=== PATIENT | male | born 1930 | race Caucasian/White ===

== ENCOUNTER 2016-03-22 16:19 | Inpatient (IN) | payer MEDICARE, BC ==
[2016-03-22 16:50] LABS: AUTOMATED EOSINOPHIL 1.3 % (0-5); AUTOMATED MONOCYTE 8.3 % (3-10); AUTOMATED NEUTROPHIL 80.4 % (45-76); MPV 9.9 fL (7.4-10.4)
[2016-03-22] MEDS ORDERED: Pharmacy Review for Metformin - IV Contrast Given SCH (17:00)
[2016-03-22 17:05] LABS: BLOOD UREA NITROGEN 24 MG/DL (9-20); CALC CORRECTED 10.2 MG/DL (8.4-10.2); CALCIUM 9.7 MG/DL (8.4-10.2); CALCULATED OSMOLALITY 270 MOs/Kg (270-290); CHLORIDE 97 mEq/L (98-107); CPK TOTAL WITH POSSIBLE MB 41 IU/L (55-170); GLUCOSE 101 MG/DL (70-99); PARTIAL THROMB. TIME 21.7 SEC (22-35); SODIUM LEVEL 138 mEq/L (137-146); TOTAL PROTEIN 6.8 G/DL (6.3-8.2)
--- NOTE | 2016-03-22 17:22 | DIRPT ---
CLINICAL DATA: Dyspnea, shortness of breath for couple weeks, recently treated for pneumonia, intermittent abdominal and chest pain, headache EXAM: PORTABLE CHEST 1 VIEW COMPARISON: Portable exam 1701 hours compared to 01/25/2016 FINDINGS: LEFT subclavian pacemaker leads project over RIGHT ventricle. Upper normal heart size. Atherosclerotic calcification aorta. Enlarged central pulmonary arteries question pulmonary arterial hypertension. Bibasilar atelectasis, unable to exclude LEFT lower lobe pneumonia. Remaining lungs clear. No pleural effusion or pneumothorax. IMPRESSION: Bibasilar atelectasis, unable to exclude LEFT lower lobe consolidation/pneumonia. Electronically Signed By: Tra Olviia M.D. On: 03/22/2016 17:19
--- NOTE | 2016-03-22 17:24 | EDPRACDOC ---
- General Information Chief Complaint: Dyspnea/Resp distress Stated Complaint: SHORTNESS OF BREATH Time Seen by Provider: 03/22/16 16:27 Information Source: Patient, Manager [facility] Mode Of Arrival: Ambulance Home Medications: Home Medications Metoprolol Succinate 50 mg PO DAILY 06/07/12 Aspirin [Aspirin EC] 81 mg PO DAILY 02/06/15 Finasteride [Proscar] 5 mg PO DAILY 02/06/15 Alprazolam 0.25 mg PO HS PRN 09/23/15 Budesonide/Formoterol Fumarate [Symbicort 80-4.5 Mcg Inhaler] 2 puff INH BID Torsemide 20 mg PO QAM 09/23/15 Tramadol HCl [Ultram] 100 mg PO TID 09/23/15 Polyethylene Glycol 3350 [Miralax] 17 gm PO QHS PRN #120 powd.pack 09/25/15 Ropinirole HCl [Requip] 1 mg PO HS 10/09/15 Sennosides [Senokot] 1 tab PO DAILY 10/09/15 Tiotropium [place] [Spiriva] 18 mcg INH DAILY 10/09/15 Albuterol Sulfate Nebs [Proventil, Ventolin] 3 ml NEB Q6 PRN 03/22/16 Mirtazapine 15 mg PO QHS 03/22/16 Allergies/Adverse Reactions: Allergies Allergy/AdvReac Type Severity Reaction Status Date / Time Penicillins Allergy Severe Confusion Verified 03/22/16 17:01 temazepam [From Restoril] Allergy Intermediate Confusion Verified 03/22/16 17:01 zolpidem tartrate Allergy Confusion Verified 03/22/16 17:01 [From Ambien] - History of Present Illness HPI: PT PRESENTS WITH DYSPNEA, WEAKNESS, LOWER BACK PAIN WITH LEG WEAKNESS, AND HEMATURIA. SYMPTOMS HAVE BEEN WORSENING OVER THE LAST FEW DAYS. Shortness of Breath: Moderate Relevant History: Reports: Heart Failure (CHF) Cough: Reports: Non-productive SOB Worsens with: Reports: Exertion, Coughing SOB Improves with: Reports: Rest Associated Signs and symptoms: Reports: Cough. Denies: Fever, Nasal Symptoms, Vomiting - Treatment Prior to ED Arrival Reported Medications/Treatment FIELD MARKETING MANAGER Treated With Medication FIELD MARKETING MANAGER YES Meds/Treatments Given O2 via Cannula,Neb Treatment(Albuterol) Medications FIELD MARKETING MANAGER (Medication/ x2 albuterol, duoneb, 125 mg solumedrol Dose/Time) EMS Treatment BLS,EKG IV Yes ED Past Medical History - History Reviewed Yes Nurses notes reviewed and agree except as marked - Patient Medical History Neurological History: Denies: Cerebrovascular Accident, Seizures, Dementia, Epilepsy, Guillian-Frank[place] Syndrome, Parkinson's, Multiple Sclerosis, Myasthenia Gravis Cardiac History: Reports: Coronary Artery Disease, Atrial Fibrillation, Hypertension, Congestive Heart Failure (HISTORY OF. No CHF on 05/2010 ECHO: Preserved EF, mild LVH.), Heart Attack, Cardiac Catheterization, Hypercholesterolemia, Pacemaker (X3). Denies: Cardiomyopathy, Valvular Heart Disease, Syncope Respiratory History: Reports: COPD (and chronc respiratory failure on 2L NC at home), Chronic Bronchitis. Denies: Asthma, Pneumonia, Emphysema, Pulmonary Embolism GI/ History: Reports: Renal Disease (history right kidney lesion 2010 - [facility] urologist), Kidney Stones, Gastroesophageal Reflux (and colonoscopy by Dr. Treviño). Denies: Renal Failure, Urinary Tract Infection Musculoskeletal History: Reports: Arthritis, Osteoarthritis. Denies: Gout, Rheumatoid Arthritis Psychological History: Reports: Depression. Denies: Anxiety, Schizophrenia, Bipolar Disorder, Substance Use Disorder Systemic History: Denies: Cancer, Anemia, Hypothyroidism Surgical History: Reports: Cardiac Catheterization, Hernia Surgery, Other ( Prostate surgery. Pacemaker x 3.). Denies: Tonsillectomy/Adnoidectomy - Family Medical History Reports: Cardiac Disorders (Father: at 55yo of [place].). Denies: Hypertension , Diabetes, Cancer, Stroke - Social Medical History Smoking Status: Former smoker Social History: Denies: Substance Use Disorder Lives In: Home EDM Review of Systems - Review of Systems ROS Negative Except as Marked: Yes All systems reviewed and were negative except as marked Constitutional: Fatigue, Weakness. negative: Fever Respiratory: Cough, Shortness of Breath Cardiovascular: negative: Chest Pain Gastrointestinal: negative: Diarrhea, Pain, Vomiting Genitourinary: Hematuria Musculoskeletal: Back (LOWER BACK PAIN WITH PAIN IN BILATERAL LEGS WITH ATTEMPTED STANDING.) - Physical Exam Constitutional: Alert Oriented to: Time, Person, Place Last recorded Vital Signs: Last Vital Signs Temp 98.3 F 03/22/16 16:32 Pulse 110 03/22/16 17:01 Resp 21 03/22/16 17:01 BP 148/70 03/22/16 17:01 Pulse Ox 90 L 03/22/16 17:01 Oxygen Pulse Oxygen Saturation 90 O2 Device Nasal Cannula Oxygen Flow Rate 3 Fraction of Inspired Oxygen ( FIO2) - HEENT Head: negative: Deformity, Laceration Eye Exam: negative: Conjunctival Injection, Pale Conjunctiva Oropharynx: negative: Membranes Dry Nose: negative: Congestion, Discharge Neck: negative: Limited ROM - Respiratory/Cardiovascular Respiratory: Diminished, Tachypnea Cardiovascular: Tachycardia, Irregular. negative: Bradycardia - GI Auscultation: Normal Palpation: Normal Tenderness: Non tender - Musculoskeletal Extremities: Pedal Pulse (PALPABLE), Radial Pulse (PALPABLE). negative: Calf Tenderness - Integumentary Skin: Warm, Dry - Neurologic Memory Impaired: Normal Motor Function: Normal Mood Description: Anxious Thought: Coherent Perception: Normal ED SOB MDM - Results Result Diagrams: 03/22/16 16:25 03/22/16 16:25 Results: WBC 9.5 xk/uL (3.8-10.8) 03/22/16 16:25 RBC 3.95 xM/uL (4.70-6.10) L 03/22/16 16:25 Hgb 12.6 g/dL (14.0-18.0) L 03/22/16 16:25 Hct 36.8 % (42-52) L 03/22/16 16:25 MCV 93 fL (80-94) 03/22/16 16:25 MCH 32.0 pg (27-32) 03/22/16 16:25 MCHC 34.3 g/dl (33-36) 03/22/16 16:25 RDW 14.4 % (11.5-14.5) 03/22/16 16:25 Plt Count 149 xk/uL (130-400) 03/22/16 16:25 MPV 9.9 fL (7.4-10.4) 03/22/16 16:25 Neut % (Auto) 80.4 % (45-76) H 03/22/16 16:25 Lymph % (Auto) 9.0 % (17-44) L 03/22/16 16:25 [place] % (Auto) 8.3 % (3-10) 03/22/16 16:25 Eos % (Auto) 1.3 % (0-5) 03/22/16 16:25 Baso % (Auto) 1.0 % (0-2) 03/22/16 16:25 Absolute Neuts (auto) 7.60 xk/uL (1.7-8.2) 03/22/16 16:25 Absolute Lymphs (auto) 0.86 xk/uL (0.65-4.75) 03/22/16 16:25 PT 10.7 SEC (9.2-11.2) 03/22/16 16:25 INR 1.0 03/22/16 16:25 APTT 21.7 SEC (22-35) L 03/22/16 16:25 Sodium 138 mEq/L (137-146) 03/22/16 16:25 Potassium 3.7 mEq/L (3.5-5.1) 03/22/16 16:25 Chloride 97 mEq/L (98-107) L 03/22/16 16:25 Carbon Dioxide 33 mMOL/L (22-33) 03/22/16 16:25 Anion Gap 12 mEq/L (8-16) 03/22/16 16:25 BUN 24 MG/DL (9-20) H 03/22/16 16:25 Creatinine 1.20 MG/DL (0.66-1.25) 03/22/16 16:25 Estimated GFR (MDRD) 58 mL/min (>=60) L 03/22/16 16:25 Glucose 101 MG/DL (70-99) H 03/22/16 16:25 Calculated Osmolality 270 MOs/Kg (270-290) 03/22/16 16:25 Lactic Acid 1.8 mEq/L (0.7-2.1) 03/22/16 16:25 Calcium 9.7 MG/DL (8.4-10.2) 03/22/16 16:25 Corrected Calcium 10.2 MG/DL (8.4-10.2) 03/22/16 16:25 Total Bilirubin 1.5 MG/DL (0.2-1.3) H 03/22/16 16:25 AST 21 IU/L (17-59) 03/22/16 16:25 ALT 35 IU/L (21-72) 03/22/16 16:25 Alkaline Phosphatase 97 IU/L (50-160) 03/22/16 16:25 Creatine Kinase 41 IU/L (55-170) L 03/22/16 16:25 Troponin I 0.07 ng/mL (<.04) 03/22/16 16:25 Total Protein 6.8 G/DL (6.3-8.2) 03/22/16 16:25 Albumin 3.5 G/DL (3.5-5.0) 03/22/16 16:25 Lipase 25 U/L (23-300) 03/22/16 16:25 Lab Results 03/22/16 03/22/16 03/22/16 16:25 16:25 16:25 WBC 9.5 RBC 3.95 L Hgb 12.6 L Hct 36.8 L MCV 93 MCH 32.0 MCHC 34.3 RDW 14.4 Plt Count 149 MPV 9.9 Neut % (Auto) 80.4 H Lymph % (Auto) 9.0 L [place] % (Auto) 8.3 Eos % (Auto) 1.3 Baso % (Auto) 1.0 Absolute Neuts (auto) 7.60 Absolute Lymphs (auto) 0.86 PT 10.7 INR 1.0 APTT 21.7 L Sodium Potassium Chloride Carbon Dioxide Anion Gap BUN Creatinine Estimated GFR (MDRD) Glucose Calculated Osmolality Lactic Acid 1.8 Calcium Corrected Calcium Total Bilirubin AST ALT Alkaline Phosphatase Creatine Kinase Troponin I Total Protein Albumin Lipase 03/22/16 16:25 WBC RBC Hgb Hct MCV MCH MCHC RDW Plt Count MPV Neut % (Auto) Lymph % (Auto) [place] % (Auto) Eos % (Auto) Baso % (Auto) Absolute Neuts (auto) Absolute Lymphs (auto) PT INR APTT Sodium 138 Potassium 3.7 Chloride 97 L Carbon Dioxide 33 Anion Gap 12 BUN 24 H Creatinine 1.20 Estimated GFR (MDRD) 58 L Glucose 101 H Calculated Osmolality 270 Lactic Acid Calcium 9.7 Corrected Calcium 10.2 Total Bilirubin 1.5 H AST 21 ALT 35 Alkaline Phosphatase 97 Creatine Kinase 41 L Troponin I 0.07 Total Protein 6.8 Albumin 3.5 Lipase 25 - EKG EKG #1 EKG Time: 16:29 -: Yes EKG interpreted by me Rate: bpm: 116 [place]: LAD Rhythm: Afib ST: Nonsp - Departure Yes I personally saw and evaluated the patient. Disposition: Admit IP To This Hospital Condition: Stable Final Diagnosis: Bacterial pneumonia, Acute respiratory failure with hypoxia COPD (chronic obstructive pulmonary disease) Qualifiers: COPD type: COPD with acute exacerbation Qualified Code(s): J44.1 - Chronic obstructive pulmonary disease with (acute) exacerbation Decision to Admit Time: 20:00 Decision to admit date: 03/22/16 Decision to admit: from ED
[2016-03-22 17:40] LABS: LEUKOCYTES/URINE NEG (NEGATIVE); NITRITE/URINE NEG (NEGATIVE); URINE OCCULT BLOOD NEG (NEG/TRACE)
[2016-03-22 17:44] LABS: RBC/URINE 0-2 (0-2)
[2016-03-22 17:50] LABS: ALLEN'S TEST PASS; TCO2 32.6 MMOL/L (23-27)
[2016-03-22 17:51] LABS: ABG Draw Site Right Radial
--- NOTE | 2016-03-22 18:34 | DIRPT ---
CLINICAL DATA: Abdominal pain and lower back pain. Gross hematuria. History of kidney stones. Short of breath for a few weeks. Recent pneumonia. EXAM: CT ABDOMEN AND PELVIS WITH CONTRAST TECHNIQUE: Multidetector CT imaging of the abdomen and pelvis was performed using the standard protocol following bolus administration of intravenous contrast. CONTRAST: 100 mL of Isovue 370 intravenous contrast COMPARISON: 09/27/2013 FINDINGS: Lung bases: There is a combination particular, linear and consolidated type opacities at the lung bases which may all be due to atelectasis. Pneumonia, particularly at the left lung base common should be considered in the proper clinical setting. Most of this is new from the prior CT. Heart is normal in size. At liver: Mild fatty infiltration. No mass or focal lesion. Spleen, gallbladder, pancreas: Unremarkable. Adrenal glands: 2 cm right adrenal mass similar to prior exam. Normal left adrenal gland. Kidneys, ureters, bladder: 3.4 cm right lower pole renal cyst. Mild areas of renal cortical thinning mostly along the anterior left mid to lower pole. No stones. No hydronephrosis. Ureters normal in course and in caliber. Bladder is unremarkable. Lymph nodes: No adenopathy. Ascites: None. Gastrointestinal: Left colon diverticula. No diverticulitis. Mild to moderate increased stool in the colon. No colonic wall thickening or inflammatory changes. Stomach and small bowel are unremarkable. Normal appendix visualized. Musculoskeletal: Degenerative changes throughout the visualized spine. Bones demineralized. No osteoblastic or osteolytic lesions. IMPRESSION: 1. Lung base opacities most likely due to atelectasis. Pneumonia as a component is possible. 2. No acute findings in the abdomen pelvis. 3. Mild to moderate increased stool in the colon. Multiple left colon diverticula without diverticulitis. 4. 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 Electronically Signed By: Erick Pa M.D. On: 03/22/2016 18:31
[2016-03-22] MEDS ORDERED: AZITHROMYCIN 500 MG in D5W 250 ML IV ONE (19:14)
[2016-03-22] MEDS ORDERED: CEFTRIAXONE 1 GM in D5W 100 ML IV ONE (19:14)
[2016-03-22] MEDS ORDERED: HYDROmorphone 1 MG INJECTION IV ONE (20:18)
[2016-03-22] MEDS ORDERED: Albuterol/Ipratropium Neb 3 ML NEB NEB PRN (20:42)
[2016-03-22] MEDS ORDERED: GLUCOSE (ORAL GEL) 15 GM TUBE PO PRN (20:42)
[2016-03-22] MEDS ORDERED: DEXTROSE 25 GM/50 ML PFS IV PRN (20:42)
[2016-03-22] MEDS ORDERED: GLUCAGON 1 MG VIAL SQ PRN (20:42)
[2016-03-22] MEDS ORDERED: Non-Formulary Medication ITEM (Budesonide/Formoterol Fumarate [Symbicort 80-4.5 Mcg Inha INH SCH (21:00)
--- NOTE | 2016-03-22 21:00 | HISTPHYS ---
- Chief Complaint sob, cough, - History of Present Illness 85 yowm presented to Ed for evaluation of worsening difficulties breathing. Patient reports about a week ago he has developed chest congestion cough productive foamy sputum. He reports that since that time he symptoms have worsened, he has developed chest tightness profound wheezing and cough productive thick yellowish greenish phlegm. Despite increasing his oxygen and using his nebulizers with increased frequency he did not sustain asymptomatic improvement. Early on today he has found himself gasping for air and decided to be evaluated emergency room. Upon arrival in ED patient was found hypoxic tachypneic and tachycardic. His PaO2 was only 52, chest x-ray maikel suspicion for left lower lobe pneumonia and medical consultation was phoned in for inpatient treatment. - Medical History Cardiac History: Reports: Coronary Artery Disease, Atrial Fibrillation, Hypertension, Congestive Heart Failure (HISTORY OF. No CHF on 05/2010 ECHO: Preserved EF, mild LVH.), Heart Attack, Cardiac Catheterization, Hypercholesterolemia, Pacemaker (X3), Valvular Heart Disease. Denies: Cardiomyopathy, Syncope Respiratory History: Reports: COPD (and chronc respiratory failure on 2L NC at home), Chronic Bronchitis, Pneumonia, Emphysema. Denies: Asthma, Pulmonary Embolism GI/ History: Reports: Renal Disease (history right kidney lesion 2010 - [facility] urologist), Kidney Stones, Gastroesophageal Reflux (and colonoscopy by Dr. Treviño), BPH. Denies: Renal Failure, Urinary Tract Infection Musculoskeletal History: Reports: Arthritis, Osteoarthritis. Denies: Gout, Rheumatoid Arthritis Systemic History: Denies: Cancer, Anemia, Hypothyroidism Neurological History: Denies: Cerebrovascular Accident, Seizures, Dementia, Epilepsy, Guillian-Cushing Syndrome, Parkinson's, Multiple Sclerosis, Myasthenia Gravis Psychological History: Reports: Depression, Anxiety (pacer). Denies: Schizophrenia, Bipolar Disorder, Substance Use Disorder - Surgical History Reports: Cardiac Catheterization, Hernia Surgery, Other (Prostate surgery. Pacemaker x 3.). Denies: Tonsillectomy/Adnoidectomy - Medictions/Allergies Allergies Penicillins Allergy (Severe, Verified 03/22/16 17:01) Confusion temazepam [From Restoril] Allergy (Intermediate, Verified 03/22/16 17:01) Confusion zolpidem tartrate [From Ambien] Allergy (Verified 03/22/16 17:01) Confusion FAMILY STATES AMBIEN IN PAST HAS CAUSED CONFUSION Current Medication List: Reviewed Home Medications Metoprolol Succinate 50 mg PO DAILY 06/07/12 Aspirin [Aspirin EC] 81 mg PO DAILY 02/06/15 Finasteride [Proscar] 5 mg PO DAILY 02/06/15 Alprazolam 0.25 mg PO HS PRN 09/23/15 Budesonide/Formoterol Fumarate [Symbicort 80-4.5 Mcg Inhaler] 2 puff INH BID Torsemide 20 mg PO QAM 09/23/15 Tramadol HCl [Ultram] 100 mg PO TID 09/23/15 Polyethylene Glycol 3350 [Miralax] 17 gm PO QHS PRN #120 powd.pack 09/25/15 Ropinirole HCl [Requip] 1 mg PO HS 10/09/15 Sennosides [Senokot] 1 tab PO DAILY 10/09/15 Tiotropium [place] [Spiriva] 18 mcg INH DAILY 10/09/15 Albuterol Sulfate Nebs [Proventil, Ventolin] 3 ml NEB Q6 PRN 03/22/16 Mirtazapine 15 mg PO QHS 03/22/16 - Family History Reports: Cardiac Disorders (Father: at 55yo of [place].). Denies: Hypertension , Diabetes, Cancer, Stroke - Social History Travel Outside of [place] in the Last 3 Months?: No Lives: With Family Smoking Status: Former smoker Social History: Denies: Substance Use Disorder - Review of Systems Constitutional: Fever, Diaphoresis, Fatigue, Loss of Appetite, Weakness, Weight loss Eyes: No Symptoms Reported Ears: No Symptoms Reported Nose: No Symptoms Reported Mouth: No Symptoms Reported Throat/Neck: No Symptoms Reported Respiratory: Cough, Shortness of Breath, Wheezing, Sputum, Dyspnea Cardiovascular: Palpitations Gastrointestinal: Nausea, Constipation, Heartburn Genitourinary: No Symptoms Reported, Nocturia Neurological: Numbness, Weakness Musculoskeletal:: Arthritis Integumentary: No Symptoms Reported Allergic/Immunologic: No Symptoms Reported Hematologic: No Symptoms Reported Endocrine: No Symptoms Reported Psychiatric: No Symptoms Reported - Physical Exam Vital Signs: Initial Vitals Temperature 98.3 F 03/22/16 16:32 Pulse Rate 111 03/22/16 16:32 Respiratory Rate 22 03/22/16 16:32 Blood Pressure 130/58 L 03/22/16 16:32 Pulse Oxygen Saturation 88 L 03/22/16 16:32 Constitutional: Alert, Distress, Restless Oriented to: Time, Person, Place - HEENT Head: Normal Eye: Normal Oropharynx: Normal ENT EAC: Normal TMJ: Normal Nose: No Symptoms Reported Respiratory: Accessory Muscle Use, Diminished, Rhonchi, Tachypnea, Wheezes Cardiovascular: Normal, Systolic murmur - GI Auscultation: Normal Palpation: Normal Tenderness: Non tender Rectal Exam: Deferred - Exam Deferred: Yes - Musculoskeletal Back: Normal Extremities: Clubbing, Cyanosis, Edema Spine: limited range of motion - Integumentary Skin: Normal, Warm, Dry Lymphatics: Normal - Neurologic Memory Impaired: Normal Motor Function: Abnormal Cranial Nerve: Normal Cerebellar: Ataxia Mood Description: Anxious Thought: Coherent Perception: Normal - Focused CV Perfusion Exam Vital Signs: Last Vital Signs Temp 98.3 F 03/22/16 16:32 Pulse 104 03/22/16 19:43 Resp 19 03/22/16 19:43 BP 103/56 L 03/22/16 19:43 Pulse Ox 94 03/22/16 19:43 - Diagnostic Findings Allergies Penicillins Allergy (Severe, Verified 03/22/16 17:01) Confusion temazepam [From Restoril] Allergy (Intermediate, Verified 03/22/16 17:01) Confusion zolpidem tartrate [From Ambien] Allergy (Verified 03/22/16 17:01) Confusion FAMILY STATES AMBIEN IN PAST HAS CAUSED CONFUSION Initial Vitals Temperature 98.3 F 03/22/16 16:32 Pulse Rate 111 03/22/16 16:32 Respiratory Rate 22 03/22/16 16:32 Blood Pressure 130/58 L 03/22/16 16:32 Pulse Oxygen Saturation 88 L 03/22/16 16:32 03/22/16 16:25 03/22/16 16:25 Abnormal Lab Results 03/22/16 03/22/16 03/22/16 16:25 16:25 16:25 RBC 3.95 L Hgb 12.6 L Hct 36.8 L Neut % (Auto) 80.4 H Lymph % (Auto) 9.0 L APTT 21.7 L pH pO2 HCO3 Total CO2 Base Excess Chloride 97 L BUN 24 H Estimated GFR (MDRD) 58 L Glucose 101 H Total Bilirubin 1.5 H Creatine Kinase 41 L Urine Protein Urine WBC Hyaline Casts 03/22/16 03/22/16 17:24 17:46 RBC Hgb Hct Neut % (Auto) Lymph % (Auto) APTT pH 7.480 H pO2 52.0 L HCO3 31.3 H Total CO2 32.6 H Base Excess 7.0 H Chloride BUN Estimated GFR (MDRD) Glucose Total Bilirubin Creatine Kinase Urine Protein 1+ H Urine WBC 2-5 H Hyaline Casts 5-10 H Last Vital Signs Temp 98.3 F 03/22/16 16:32 Pulse 104 03/22/16 19:43 Resp 19 03/22/16 19:43 BP 103/56 L 03/22/16 19:43 Pulse Ox 94 03/22/16 19:43 Patient Name: MIKE HIRSCH LOC: ED : 1930 AGE: 85 Order Date:03/22/16 Date of Service: Report # [id number] Ord Physician: Shiva Guerrero DO Exam # [id number] Emergency Physician: Shiva Guerrero DO Exam(s): [id number] RAD/DG CHEST PORTABLE CLINICAL DATA: Dyspnea, shortness of breath for couple weeks, recently treated for pneumonia, intermittent abdominal and chest pain, headache EXAM: PORTABLE CHEST 1 VIEW COMPARISON: Portable exam 1701 hours compared to 01/25/2016 FINDINGS: LEFT subclavian pacemaker leads project over RIGHT ventricle. Upper normal heart size. Atherosclerotic calcification aorta. Enlarged central pulmonary arteries question pulmonary arterial hypertension. Bibasilar atelectasis, unable to exclude LEFT lower lobe pneumonia. Remaining lungs clear. No pleural effusion or pneumothorax. IMPRESSION: Bibasilar atelectasis, unable to exclude LEFT lower lobe consolidation/pneumonia. Electronically Signed By: Tra Olivia M.D. On: 03/22/2016 17:19 Patient Name: MIKE HIRSCH LOC: ED : 1930 AGE: 85 Order Date:03/22/16 Date of Service: Report # [id number] Ord Physician: Shiva Guerrero DO Exam # [id number] Emergency Physician: Shiva Guerrero DO Exam(s): [id number] CT/CT ABD-PELV W/IV CM CLINICAL DATA: Abdominal pain and lower back pain. Gross hematuria. History of kidney stones. Short of breath for a few weeks. Recent pneumonia. EXAM: CT ABDOMEN AND PELVIS WITH CONTRAST TECHNIQUE: Multidetector CT imaging of the abdomen and pelvis was performed using the standard protocol following bolus administration of intravenous contrast. CONTRAST: 100 mL of Isovue 370 intravenous contrast COMPARISON: 09/27/2013 FINDINGS: Lung bases: There is a combination particular, linear and consolidated type opacities at the lung bases which may all be due to atelectasis. Pneumonia, particularly at the left lung base common should be considered in the proper clinical setting. Most of this is new from the prior CT. Heart is normal in size. At liver: Mild fatty infiltration. No mass or focal lesion. Spleen, gallbladder, pancreas: Unremarkable. Adrenal glands: 2 cm right adrenal mass similar to prior exam. Normal left adrenal gland. Kidneys, ureters, bladder: 3.4 cm right lower pole renal cyst. Mild areas of renal cortical thinning mostly along the anterior left mid to lower pole. No stones. No hydronephrosis. Ureters normal in course and in caliber. Bladder is unremarkable. Lymph nodes: No adenopathy. Ascites: None. Gastrointestinal: Left colon diverticula. No diverticulitis. Mild to moderate increased stool in the colon. No colonic wall thickening or inflammatory changes. Stomach and small bowel are unremarkable. Normal appendix visualized. Musculoskeletal: Degenerative changes throughout the visualized spine. Bones demineralized. No osteoblastic or osteolytic lesions. IMPRESSION: 1. Lung base opacities most likely due to atelectasis. Pneumonia as a component is possible. 2. No acute findings in the abdomen pelvis. 3. Mild to moderate increased stool in the colon. Multiple left colon diverticula without diverticulitis. 4. 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 EKG:afib no acute stt changes - Assessment (1) Acute respiratory failure with hypoxia J96.01 - ACUTE RESPIRATORY FAILURE WITH HYPOXIA Acute Present on Admission: Yes Patient will be admitted to monitor bed. Continue supplemental O2. Monitor pulmonary status. Repeat PA and lateral chest x-ray and ABG in the morning. May require BiPAP therapy.. (2) Bacterial pneumonia J15.9 - UNSPECIFIED BACTERIAL PNEUMONIA Acute Present on Admission: Yes Patient will receive IV antibiotics in the form of Rocephin and Zithromax. Will adjust antibiotics based on culture results. (3) COPD with acute exacerbation J44.1 - CHRONIC OBSTRUCTIVE PULMONARY DISEASE W (ACUTE) EXACERBATION Acute Present on Admission: Yes Patient will receive IV steroids and nebulized bronchodilators. 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 benzos (6) BPH (benign prostatic hyperplasia) N40.0 - BENIGN PROSTATIC HYPERPLASIA WITHOUT LOWER URINRY TRACT SYMP Chronic Present on Admission: Yes Qualifiers: Prostatic enlargement morphology: non-nodular Lower urinary tract symptom presence: symptoms absent Qualified Code(s): N40.0 - Benign prostatic hyperplasia without lower urinary tract symptoms Stable. Monitor urinary symptoms Case Care Discussed with: Patient, Family, Nursing Staff Total Time: 65 min . Critical Care: Yes Code: 291
[2016-03-22] MEDS: NS 1,000 ML IV SCH (22:49)
[2016-03-22] MEDS: PEG-ELECTROLYTE 17 GM PACK PO SCH (22:49)
[2016-03-22] MEDS: ROPINIROLE 1 MG TAB PO SCH (22:50)
[2016-03-22] MEDS: ENOXAPARIN 40 MG/0.4 ML PFS SQ SCH (22:50)
[2016-03-22] MEDS: MIRTAZAPINE 15 MG TAB PO SCH (22:50)
[2016-03-22] MEDS: METHYLPREDNISOLONE 125 MG/2 ML VIAL IV SCH (22:50)
[2016-03-22] MEDS: GUAIFENESIN 600 MG LA TAB PO SCH (22:50)
[2016-03-22] MEDS: ALPRAZOLAM 0.25 MG TAB PO PRN (22:54)
[2016-03-22] MEDS: TRAMADOL HCL 50 MG TAB PO SCH (23:01)
[2016-03-22] MEDS: REGULAR INSULIN 100 UNITS/ML - 3 ML VIAL SQ SCH (23:50)
[2016-03-23] MEDS: Albuterol/Ipratropium Neb 3 ML NEB NEB SCH ×4 (01:25→20:11)
[2016-03-23 04:47] LABS: ALLEN'S TEST PASS; BEb 7.3 (+/- 2); TCO2 35.2 MMOL/L (23-27)
[2016-03-23 04:52] LABS: ABG Draw Site Right Radial
[2016-03-23] MEDS: METHYLPREDNISOLONE 125 MG/2 ML VIAL IV SCH ×4 (05:00→21:45)
[2016-03-23] MEDS: TRAMADOL HCL 50 MG TAB PO SCH ×3 (05:19→20:27)
[2016-03-23] MEDS: PANTOPRAZOLE 40 MG TAB PO SCH (05:19)
[2016-03-23] MEDS: REGULAR INSULIN 100 UNITS/ML - 3 ML VIAL SQ SCH ×3 (05:58→18:44)
[2016-03-23] MEDS ORDERED: PANTOPRAZOLE 40 MG TAB PO SCH (06:00)
[2016-03-23 06:36] LABS: BLOOD UREA NITROGEN 21 MG/DL (9-20); CALCIUM 9.4 MG/DL (8.4-10.2); CALCULATED OSMOLALITY 273 MOs/Kg (270-290); CHLORIDE 98 mEq/L (98-107); GLUCOSE 129 MG/DL (70-99); SODIUM LEVEL 139 mEq/L (137-146)
[2016-03-23 07:31] LABS: SEG NEUTROPHIL 95 % (45-76)
--- NOTE | 2016-03-23 08:22 | DIRPT ---
CLINICAL DATA: Respiratory failure EXAM: CHEST 2 VIEW COMPARISON: 03/22/2016 FINDINGS: Left pacer remains in place, unchanged. Low lung volumes with bibasilar opacities, likely atelectasis. Heart is borderline enlarged with vascular congestion. No effusions. No acute bony abnormality. IMPRESSION: Low lung volumes, bibasilar atelectasis. Cardiomegaly, vascular congestion. Electronically Signed By: Davis Su M.D. On: 03/23/2016 08:19
[2016-03-23] MEDS: BUDESONIDE 0.5 MG NEB NEB SCH ×2 (08:26→20:13)
[2016-03-23] MEDS ORDERED: NITROGLYCERINE 0.4 MG TAB SL PRN (09:17)
[2016-03-23] MEDS ORDERED: NITROGLYCERINE 0.4 MG TAB SL ONE (09:19)
[2016-03-23] MEDS ORDERED: NS 500 ML IV SCH (09:35)
[2016-03-23] MEDS: METOPROLOL (TOPROL-XL) 50 MG TAB PO SCH (10:04)
[2016-03-23] MEDS: TORSEMIDE 20 MG TAB PO SCH (10:05)
[2016-03-23] MEDS: NS 1,000 ML IV SCH ×2 (10:12→23:08)
[2016-03-23] MEDS: FINASTERIDE 5 MG TAB PO SCH (10:13)
[2016-03-23] MEDS: SENNA CONCENTRATE TAB PO SCH (10:13)
[2016-03-23] MEDS: GUAIFENESIN 600 MG LA TAB PO SCH ×2 (10:13→20:25)
[2016-03-23] MEDS ORDERED: Vaccine Screening Complete SCH (11:00)
--- NOTE | 2016-03-23 15:23 | GENMEDPROG ---
Chief Complaint: Confused. Agitated and restless at times. Repeatedly states that he feels like he is dying. Still with moderate distress. Notes Reviewed: Yes Events from last night noted and discussed with Clinical Staff Current Medication List: Reviewed Currently: Reports: Cough, Wheezing, JIMENEZ, SOB. Denies: Nausea and Vomiting, Abdominal Pain - Physical Examination Vital Signs and I&O: Last Vital Signs Temp 97.6 F 03/23/16 10:32 Pulse 100 03/23/16 10:32 Resp 20 03/23/16 10:32 BP 112/65 03/23/16 10:32 Pulse Ox 93 03/23/16 10:32 Oxygen Pulse Oxygen Saturation 93 O2 Device Venturi Mask Oxygen Flow Rate 5 Fraction of Inspired Oxygen ( 50 FIO2) Intake & Output 03/20/16 03/21/16 03/22/16 03/23/16 23:59 23:59 23:59 23:59 Intake Total 530 591 Output Total 100 450 Balance 430 141 Patient's weight 79.469 kg 79.061 kg General: Alert, Severe distress. negative: Oriented x3, Well appearing (Rafiq ill-appearing) HEENT: Normal, PERRLA, EOMI Neck: Non-tender, Full range of motion Lymphatics: Normal Respiratory: Accessory Muscle Use, Diminished, Rhonchi, Tachypnea, Wheezes Cardiovascular: Regular rate and rhythm, No Gallops,Rubs/Murmurs GI: Normal bowel sounds, Soft, Non tender, No hepatospenomegaly, No masses Extremities/Musculoskeletal: Normal pulses, Swelling. negative: Tenderness Skin: Warm,Dry and Intact, No rashes Neurological: Normal Steady Gait, Normal speech, Strength at 5/5 X4 ext, Normal tone, Cranial nerves 3-12 NL Psych/Mental Status: Appropriate, Normal Affect, Cooperative Lab/DI/Studies Reviewed: Laboratory Results - last 24 hr 03/22/16 03/22/16 03/22/16 16:25 16:25 16:25 WBC 9.5 RBC 3.95 L Hgb 12.6 L Hct 36.8 L MCV 93 MCH 32.0 MCHC 34.3 RDW 14.4 Plt Count 149 MPV 9.9 Neut % (Auto) 80.4 H Lymph % (Auto) 9.0 L [place] % (Auto) 8.3 Eos % (Auto) 1.3 Baso % (Auto) 1.0 Absolute Neuts (auto) 7.60 Absolute Lymphs (auto) 0.86 Seg Neuts % (Manual) Band Neutrophils % Lymphocytes % (Manual) Monocytes % (Manual) Absolute Neutrophils Absolute Lymphocytes Platelet Estimate RBC Morphology PT INR APTT Puncture Site pH pCO2 pO2 HCO3 Total CO2 Base Excess FiO2 % Specimen Drawn By Sodium 138 Potassium 3.7 Chloride 97 L Carbon Dioxide 33 Anion Gap 12 BUN 24 H Creatinine 1.20 Estimated GFR (MDRD) 58 L Glucose 101 H POC Capillary Glucose Hemoglobin A1c Calculated Osmolality 270 Lactic Acid 1.8 Calcium 9.7 Corrected Calcium 10.2 Magnesium Total Bilirubin 1.5 H AST 21 ALT 35 Alkaline Phosphatase 97 Creatine Kinase 41 L Troponin I 0.07 Abv-A-Lcshltmhpan Pept Total Protein 6.8 Albumin 3.5 Lipase 25 Urine Color Urine Clarity Urine pH Ur Specific Erin Urine Protein Urine Glucose (UA) Urine Ketones Urine Occult Blood Urine Nitrite Urine Bilirubin Urine Urobilinogen Ur Leukocyte Esterase Urine RBC Urine WBC Ur Epithelial Cells Hyaline Casts Urine Mucus 03/22/16 03/22/16 03/22/16 16:25 16:25 16:25 WBC RBC Hgb Hct MCV MCH MCHC RDW Plt Count MPV Neut % (Auto) Lymph % (Auto) [place] % (Auto) Eos % (Auto) Baso % (Auto) Absolute Neuts (auto) Absolute Lymphs (auto) Seg Neuts % (Manual) Band Neutrophils % Lymphocytes % (Manual) Monocytes % (Manual) Absolute Neutrophils Absolute Lymphocytes Platelet Estimate RBC Morphology PT 10.7 INR 1.0 APTT 21.7 L Puncture Site pH pCO2 pO2 HCO3 Total CO2 Base Excess FiO2 % Specimen Drawn By Sodium Potassium Chloride Carbon Dioxide Anion Gap BUN Creatinine Estimated GFR (MDRD) Glucose POC Capillary Glucose Hemoglobin A1c 5.5 Calculated Osmolality Lactic Acid Calcium Corrected Calcium Magnesium Total Bilirubin AST ALT Alkaline Phosphatase Creatine Kinase Troponin I Omx-M-Sjiotaibari Pept 317 Total Protein Albumin Lipase Urine Color Urine Clarity Urine pH Ur Specific Erin Urine Protein Urine Glucose (UA) Urine Ketones Urine Occult Blood Urine Nitrite Urine Bilirubin Urine Urobilinogen Ur Leukocyte Esterase Urine RBC Urine WBC Ur Epithelial Cells Hyaline Casts Urine Mucus 03/22/16 03/22/16 03/22/16 17:24 17:46 19:34 WBC RBC Hgb Hct MCV MCH MCHC RDW Plt Count MPV Neut % (Auto) Lymph % (Auto) [place] % (Auto) Eos % (Auto) Baso % (Auto) Absolute Neuts (auto) Absolute Lymphs (auto) Seg Neuts % (Manual) Band Neutrophils % Lymphocytes % (Manual) Monocytes % (Manual) Absolute Neutrophils Absolute Lymphocytes Platelet Estimate RBC Morphology PT INR APTT Puncture Site Right radial pH 7.480 H pCO2 42.0 pO2 52.0 L HCO3 31.3 H Total CO2 32.6 H Base Excess 7.0 H FiO2 % 3 lpm nc Specimen Drawn By [place] Sodium Potassium Chloride Carbon Dioxide Anion Gap BUN Creatinine Estimated GFR (MDRD) Glucose POC Capillary Glucose Hemoglobin A1c Calculated Osmolality Lactic Acid Calcium Corrected Calcium Magnesium Total Bilirubin AST ALT Alkaline Phosphatase Creatine Kinase Troponin I 0.13 [id number]-Egrxnwrllvp Pept Total Protein Albumin Lipase Urine Color Yellow Urine Clarity Clear Urine pH 7.0 Ur Specific Erin 1.010 Urine Protein 1+ H Urine Glucose (UA) Neg Urine Ketones Neg Urine Occult Blood Neg Urine Nitrite Neg Urine Bilirubin Neg Urine Urobilinogen 0.2 Ur Leukocyte Esterase Neg Urine RBC 0-2 Urine WBC 2-5 H Ur Epithelial Cells Occ Hyaline Casts 5-10 H Urine Mucus Occ 03/22/16 03/23/16 03/23/16 23:48 04:40 04:55 WBC RBC Hgb Hct MCV MCH MCHC RDW Plt Count MPV Neut % (Auto) Lymph % (Auto) [place] % (Auto) Eos % (Auto) Baso % (Auto) Absolute Neuts (auto) Absolute Lymphs (auto) Seg Neuts % (Manual) Band Neutrophils % Lymphocytes % (Manual) Monocytes % (Manual) Absolute Neutrophils Absolute Lymphocytes Platelet Estimate RBC Morphology PT INR APTT Puncture Site Right radial pH 7.410 pCO2 53.0 H pO2 76.0 L HCO3 33.6 H Total CO2 35.2 H Base Excess 7.3 H FiO2 % 4l lnc Specimen Drawn By [employer] Sodium 139 Potassium 4.1 Chloride 98 Carbon Dioxide 35 H Anion Gap 10 BUN 21 H Creatinine 1.00 Estimated GFR (MDRD) > 60 Glucose 129 H POC Capillary Glucose 136 H Hemoglobin A1c Calculated Osmolality 273 Lactic Acid Calcium 9.4 Corrected Calcium Magnesium 2.20 Total Bilirubin AST ALT Alkaline Phosphatase Creatine Kinase Troponin I [id number]-Koigjkdwfwa Pept Total Protein Albumin Lipase Urine Color Urine Clarity Urine pH Ur Specific Erin Urine Protein Urine Glucose (UA) Urine Ketones Urine Occult Blood Urine Nitrite Urine Bilirubin Urine Urobilinogen Ur Leukocyte Esterase Urine RBC Urine WBC Ur Epithelial Cells Hyaline Casts Urine Mucus 03/23/16 03/23/16 04:55 05:44 WBC 6.9 RBC 3.61 L Hgb 11.6 L Hct 33.5 L MCV 93 MCH 32.1 H MCHC 34.6 RDW 14.4 Plt Count 149 MPV 10.0 Neut % (Auto) Cancelled Lymph % (Auto) Cancelled [place] % (Auto) Cancelled Eos % (Auto) Cancelled Baso % (Auto) Cancelled Absolute Neuts (auto) Cancelled Absolute Lymphs (auto) Cancelled Seg Neuts % (Manual) 95 H Band Neutrophils % 0 Lymphocytes % (Manual) 3 L Monocytes % (Manual) 0 Absolute Neutrophils 6.56 Absolute Lymphocytes 0.21 L Platelet Estimate Norm RBC Morphology Norm PT INR APTT Puncture Site pH pCO2 pO2 HCO3 Total CO2 Base Excess FiO2 % Specimen Drawn By Sodium Potassium Chloride Carbon Dioxide Anion Gap BUN Creatinine Estimated GFR (MDRD) Glucose POC Capillary Glucose 144 H Hemoglobin A1c Calculated Osmolality Lactic Acid Calcium Corrected Calcium Magnesium Total Bilirubin AST ALT Alkaline Phosphatase Creatine Kinase Troponin I [id number]-S-Redtxcxapbz Pept Total Protein Albumin Lipase Urine Color Urine Clarity Urine pH Ur Specific Erin Urine Protein Urine Glucose (UA) Urine Ketones Urine Occult Blood Urine Nitrite Urine Bilirubin Urine Urobilinogen Ur Leukocyte Esterase Urine RBC Urine WBC Ur Epithelial Cells Hyaline Casts Urine Mucus - Assessment (1) Acute respiratory failure with hypoxia Acute J96.01 - ACUTE RESPIRATORY FAILURE WITH HYPOXIA Comment/Plan: Remains acutely ill. Was having chest pain earlier and received does nitroglycerin. Unfortunately subsequently became hypotensive. Appears restless confused and agitated at times. Continue IV steroids, IV antibiotics, nebulizer treatments and aggressive pulmonary toilet. (2) Bacterial pneumonia Acute J15.9 - UNSPECIFIED BACTERIAL PNEUMONIA Comment/Plan: Continue IV antibiotics and pulmonary toilet. Remains acutely ill (3) COPD (chronic obstructive pulmonary disease) Acute J44.9 - CHRONIC OBSTRUCTIVE PULMONARY DISEASE, UNSPECIFIED Qualifiers: COPD type: COPD with acute exacerbation Chronic bronchitis type: C Emphysema type: E Qualified Code(s): J44.1 - Chronic obstructive pulmonary disease with (acute) exacerbation Comment/Plan: Severe. IV steroids, nebulizer treatments pulmonary toilet. Likely will need BiPAP use but is somewhat restless and agitated may not be able to tolerate (4) GERD (gastroesophageal reflux disease) Acute K21.9 - GASTRO-ESOPHAGEAL REFLUX DISEASE WITHOUT ESOPHAGITIS Qualifiers: Esophagitis presence: without esophagitis Qualified Code(s): K21.9 - Gastro -esophageal reflux disease without esophagitis Comment/Plan: Continue PPI (5) Adolescent depression Chronic F32.9 - MAJOR DEPRESSIVE DISORDER, SINGLE EPISODE, UNSPECIFIED Comment/Plan: Continue home meds and p.r.n. benzos (6) BPH (benign prostatic hyperplasia) Chronic N40.0 - BENIGN PROSTATIC HYPERPLASIA WITHOUT LOWER URINRY TRACT SYMP Qualifiers: Prostatic enlargement morphology: non-nodular Lower urinary tract symptom presence: symptoms absent Qualified Code(s): N40.0 - Benign prostatic hyperplasia without lower urinary tract symptoms Comment/Plan: Stable. Monitor urinary symptoms Case Care Discussed with: Patient, Nursing Staff, Physical Therapy, Resource Management, Respiratory Therapy, [place] Manager Total Time: 45 minutes Critical Care: Yes
--- NOTE | 2016-03-23 15:50 | CAPUEKG ---
[place], [place] Test Date: 2016-03-23 Pat Name: MIKE HIRSCH Department: Room: 440 Gender: Male Physics Technician: : Requested By: Order Number: Reading MD: Magdi Matos MD Measurements Intervals [place] Rate: 122 P: [place]: QRS: -32 QRSD: 104 T: 89 QT: 338 QTc: 481 Interpretive Statements Atrial fibrillation with rapid ventricular response Left axis deviation Abnormal ECG Electronically Signed On 03-23-16 15:50:21 EST by Magdi Matos MD <[email or web address]> [id number]
[2016-03-23] MEDS: CEFTRIAXONE 1 GM in D5W 100 ML IV SCH (18:45)
[2016-03-23] MEDS: ENOXAPARIN 40 MG/0.4 ML PFS SQ SCH (18:45)
[2016-03-23] MEDS: AZITHROMYCIN 500 MG in D5W 250 ML IV SCH (20:24)
[2016-03-23] MEDS: PEG-ELECTROLYTE 17 GM PACK PO SCH (20:25)
[2016-03-23] MEDS: ROPINIROLE 1 MG TAB PO SCH (20:26)
[2016-03-23] MEDS: MIRTAZAPINE 15 MG TAB PO SCH (20:26)
[2016-03-24] MEDS: REGULAR INSULIN 100 UNITS/ML - 3 ML VIAL SQ SCH ×6 (01:27→23:24)
[2016-03-24] MEDS: ALPRAZOLAM 0.25 MG TAB PO PRN ×2 (01:28→20:04)
[2016-03-24] MEDS: Albuterol/Ipratropium Neb 3 ML NEB NEB SCH ×4 (02:19→20:34)
[2016-03-24] MEDS: METHYLPREDNISOLONE 125 MG/2 ML VIAL IV SCH ×4 (03:58→22:51)
[2016-03-24] MEDS: PANTOPRAZOLE 40 MG TAB PO SCH (05:11)
[2016-03-24] MEDS: TRAMADOL HCL 50 MG TAB PO SCH ×3 (05:11→20:04)
[2016-03-24 05:23] LABS: ALLEN'S TEST PASS; BEb 5.6 (+/- 2)
[2016-03-24 05:26] LABS: ABG Draw Site Left Radial
[2016-03-24 06:16] LABS: SEG NEUTROPHIL 92 % (45-76)
[2016-03-24 06:19] LABS: TOTAL CELL COUNT 100
[2016-03-24 06:52] LABS: BLOOD UREA NITROGEN 25 MG/DL (9-20); CALCIUM 9.7 MG/DL (8.4-10.2); CALCULATED OSMOLALITY 275 MOs/Kg (270-290); CHLORIDE 101 mEq/L (98-107); GLUCOSE 142 MG/DL (70-99); SODIUM LEVEL 140 mEq/L (137-146)
[2016-03-24] MEDS: BUDESONIDE 0.5 MG NEB NEB SCH ×2 (08:23→20:34)
[2016-03-24] MEDS: GUAIFENESIN 600 MG LA TAB PO SCH ×2 (09:26→20:05)
[2016-03-24] MEDS: FINASTERIDE 5 MG TAB PO SCH (09:27)
[2016-03-24] MEDS: METOPROLOL (TOPROL-XL) 50 MG TAB PO SCH (09:27)
[2016-03-24] MEDS: TORSEMIDE 20 MG TAB PO SCH (09:27)
[2016-03-24] MEDS: SENNA CONCENTRATE TAB PO SCH (09:31)
[2016-03-24] MEDS ORDERED: METOPROLOL 5 MG/5 ML SDV IV ONE ×2 (10:01→10:04)
--- NOTE | 2016-03-24 13:19 | GENMEDPROG ---
Chief Complaint: A little better. Still congested and wheezing. Discussed with son at length who feels patient has declined significantly over the last couple years and likely will need to be placed in a facility. Notes Reviewed: Yes Events from last night noted and discussed with Clinical Staff Current Medication List: Reviewed Currently: Reports: Cough, Wheezing, JIMENEZ, SOB. Denies: Nausea and Vomiting, Abdominal Pain - Physical Examination Vital Signs and I&O: Last Vital Signs Temp 98.0 F 03/24/16 12:00 Pulse 88 03/24/16 12:00 Resp 20 03/24/16 12:00 BP 135/75 03/24/16 12:00 Pulse Ox 95 03/24/16 12:00 Oxygen Pulse Oxygen Saturation 95 O2 Device Nasal Cannula Oxygen Flow Rate 4 Fraction of Inspired Oxygen ( 50 FIO2) Intake & Output 03/21/16 03/22/16 03/23/16 03/24/16 23:59 23:59 23:59 23:59 Intake Total 530 1849 1110 Output Total 100 650 545 Balance 430 1199 565 Patient's weight 79.469 kg 79.061 kg 79.18 kg General: Alert, Moderate distress. negative: Oriented x3, Well appearing ( Rafiq ill-appearing) HEENT: Normal, PERRLA, EOMI, Anicteric Sclera Neck: Non-tender, Full range of motion Lymphatics: Normal Respiratory: Accessory Muscle Use, Diminished, Rhonchi, Wheezes Cardiovascular: Regular rate and rhythm, No Gallops,Rubs/Murmurs GI: Normal bowel sounds, Soft, Non tender, No hepatospenomegaly, No masses Extremities/Musculoskeletal: Normal pulses, Swelling. negative: Tenderness Skin: Warm,Dry and Intact, No rashes Neurological: Normal Steady Gait, Normal speech, Strength at 5/5 X4 ext, Normal tone, Cranial nerves 3-12 NL Psych/Mental Status: Appropriate, Normal Affect, Cooperative Lab/DI/Studies Reviewed: Laboratory Results - last 24 hr 03/23/16 03/23/16 03/24/16 10:53 15:21 00:38 WBC RBC Hgb Hct MCV MCH MCHC RDW Plt Count MPV Neut % (Auto) Lymph % (Auto) [place] % (Auto) Eos % (Auto) Baso % (Auto) Absolute Neuts (auto) Absolute Lymphs (auto) Seg Neuts % (Manual) Band Neutrophils % Lymphocytes % (Manual) Monocytes % (Manual) Absolute Neutrophils Absolute Lymphocytes Platelet Estimate RBC Morphology Puncture Site pH pCO2 pO2 HCO3 Total CO2 Base Excess FiO2 % Specimen Drawn By Sodium Potassium Chloride Carbon Dioxide Anion Gap BUN Creatinine Estimated GFR (MDRD) Glucose POC Capillary Glucose 182 H 140 H 178 H Calculated Osmolality Calcium 03/24/16 03/24/16 03/24/16 04:25 04:25 05:10 WBC 10.1 RBC 3.57 L Hgb 11.3 L Hct 32.7 L MCV 92 MCH 31.5 MCHC 34.4 RDW 14.6 H Plt Count 163 MPV 10.0 Neut % (Auto) Cancelled Lymph % (Auto) Cancelled [place] % (Auto) Cancelled Eos % (Auto) Cancelled Baso % (Auto) Cancelled Absolute Neuts (auto) Cancelled Absolute Lymphs (auto) Cancelled Seg Neuts % (Manual) 92 H Band Neutrophils % 1 Lymphocytes % (Manual) 4 L Monocytes % (Manual) 3 Absolute Neutrophils 9.39 H Absolute Lymphocytes 0.40 L Platelet Estimate Norm RBC Morphology 1+ poik Puncture Site Left radial pH 7.440 pCO2 45.0 pO2 71.0 L HCO3 30.6 H Total CO2 32.0 H Base Excess 5.6 H FiO2 % 4 lpm Specimen Drawn By Stana Sodium 140 Potassium 3.9 Chloride 101 Carbon Dioxide 29 Anion Gap 14 BUN 25 H Creatinine 1.00 Estimated GFR (MDRD) > 60 Glucose 142 H POC Capillary Glucose Calculated Osmolality 275 Calcium 9.7 03/24/16 03/24/16 05:50 12:03 WBC RBC Hgb Hct MCV MCH MCHC RDW Plt Count MPV Neut % (Auto) Lymph % (Auto) [place] % (Auto) Eos % (Auto) Baso % (Auto) Absolute Neuts (auto) Absolute Lymphs (auto) Seg Neuts % (Manual) Band Neutrophils % Lymphocytes % (Manual) Monocytes % (Manual) Absolute Neutrophils Absolute Lymphocytes Platelet Estimate RBC Morphology Puncture Site pH pCO2 pO2 HCO3 Total CO2 Base Excess FiO2 % Specimen Drawn By Sodium Potassium Chloride Carbon Dioxide Anion Gap BUN Creatinine Estimated GFR (MDRD) Glucose POC Capillary Glucose 155 H 154 H Calculated Osmolality Calcium - Assessment (1) Acute respiratory failure with hypoxia Acute J96.01 - ACUTE RESPIRATORY FAILURE WITH HYPOXIA Comment/Plan: Continues to be very short of breath though some improvement from yesterday. Still with wheezing and rhonchi and increased work of breathing. Continue IV antibiotics and pulmonary toilet. Appears more oriented today. Will likely need short-term rehab at discharge (2) Bacterial pneumonia Acute J15.9 - UNSPECIFIED BACTERIAL PNEUMONIA Comment/Plan: Continue IV antibiotics and pulmonary toilet. Remains acutely ill (3) COPD (chronic obstructive pulmonary disease) Acute J44.9 - CHRONIC OBSTRUCTIVE PULMONARY DISEASE, UNSPECIFIED Qualifiers: COPD type: COPD with acute exacerbation Chronic bronchitis type: C Emphysema type: E Qualified Code(s): J44.1 - Chronic obstructive pulmonary disease with (acute) exacerbation Comment/Plan: Slightly better today. Still with wheezing and increased work of breathing. Continue IV steroids, nebulizer treatments and pulmonary toilet. (4) GERD (gastroesophageal reflux disease) Acute K21.9 - GASTRO-ESOPHAGEAL REFLUX DISEASE WITHOUT ESOPHAGITIS Qualifiers: Esophagitis presence: without esophagitis Qualified Code(s): K21.9 - Gastro -esophageal reflux disease without esophagitis Comment/Plan: Continue PPI (5) Adolescent depression Chronic F32.9 - MAJOR DEPRESSIVE DISORDER, SINGLE EPISODE, UNSPECIFIED Comment/Plan: Continue home meds and p.r.n. benzos (6) BPH (benign prostatic hyperplasia) Chronic N40.0 - BENIGN PROSTATIC HYPERPLASIA WITHOUT LOWER URINRY TRACT SYMP Qualifiers: Prostatic enlargement morphology: non-nodular Lower urinary tract symptom presence: symptoms absent Qualified Code(s): N40.0 - Benign prostatic hyperplasia without lower urinary tract symptoms Comment/Plan: Stable. Monitor urinary symptoms Case Care Discussed with: Patient, Family, Nursing Staff, Physical Therapy, Resource Management, Respiratory Therapy, Relations Specialist
[2016-03-24] MEDS: CEFTRIAXONE 1 GM in D5W 100 ML IV SCH (18:14)
[2016-03-24] MEDS: ENOXAPARIN 40 MG/0.4 ML PFS SQ SCH (18:14)
[2016-03-24] MEDS: PEG-ELECTROLYTE 17 GM PACK PO SCH (20:04)
[2016-03-24] MEDS: AZITHROMYCIN 500 MG in D5W 250 ML IV SCH (20:04)
[2016-03-24] MEDS: MIRTAZAPINE 15 MG TAB PO SCH (20:05)
[2016-03-24] MEDS: ROPINIROLE 1 MG TAB PO SCH (20:06)
[2016-03-24] MEDS: NS 1,000 ML IV SCH (22:45)
[2016-03-24] MEDS: Levofloxacin 750 mg/150 ml D5W 750 MG/150 ML RTU IV SCH (23:22)
[2016-03-25] MEDS: Albuterol/Ipratropium Neb 3 ML NEB NEB SCH ×4 (02:37→20:10)
[2016-03-25] MEDS: METHYLPREDNISOLONE 125 MG/2 ML VIAL IV SCH ×4 (04:35→20:34)
[2016-03-25 05:07] LABS: ALLEN'S TEST PASS; BEb 6.4 (+/- 2); TCO2 33.4 MMOL/L (23-27)
[2016-03-25 05:08] LABS: ABG Draw Site Left Radial; ABG Draw Tech BKL
[2016-03-25] MEDS: REGULAR INSULIN 100 UNITS/ML - 3 ML VIAL SQ SCH ×3 (06:04→18:03)
[2016-03-25] MEDS: TRAMADOL HCL 50 MG TAB PO SCH ×3 (06:04→20:33)
[2016-03-25] MEDS: PANTOPRAZOLE 40 MG TAB PO SCH (06:04)
--- NOTE | 2016-03-25 06:10 | HIMCONS ---
DATE OF CONSULT: REQUESTING PHYSICIAN: Dr. Mancia. REASON FOR CONSULTATION: Respiratory failure. HISTORY OF PRESENT ILLNESS: The patient is an 85-year-old male, well known to me from previous office and hospital visits. Apparently, the patient has a history of baseline COPD and has not been feeling well for about a week prior to his admission with coughing up yellowish phlegm, tightness in chest, wheezing, and requiring more and more oxygen and eventually the patient ended up in the ER because of his severe hypoxia, tachypnea, and tachycardia and was found to have pneumonia, and therefore was admitted. He continues to wheeze and be short of breath. He is complaining of low back pain as well. PAST MEDICAL HISTORY: Significant for coronary artery disease, atrial fibrillation, hypertension, CHF, history of [place], cardiac catheterization, pacemaker placement, valvular heart disease, history of COPD, pneumonia, history of renal disease and kidney stones, gastroesophageal reflux disease, benign prostatic hyperplasia, arthritis, especially osteoarthritis, history of cancer, anemia, hypothyroidism, history of depression and anxiety. SURGICAL HISTORY: Significant for cardiac catheterization, hernia surgery, prostate surgery, pacemaker x3. MEDICATIONS: In the chart were noted. ALLERGIES: ALLERGIC TO PENICILLIN, TEMAZEPAM, AND AMBIEN. FAMILY HISTORY: Significant for father having cardiac disorder and [place]. SOCIAL HISTORY: The patient has been a former smoker. No history of alcohol or drug abuse. REVIEW OF SYSTEMS: Review of systems is negative except for as mentioned in the history of present illness except the patient did mention some low-grade fevers and fatigue, and denies any hemoptysis, hematemesis, hematochezia, nausea, vomiting, diarrhea, or constipation. PHYSICAL EXAMINATION: VITAL SIGNS: Temperature 97.8 degrees Fahrenheit, pulse 83, respiratory rate is 18, blood pressure 143/72, pulse ox 97% on 3 L nasal cannula. CHEST: Bilateral diffuse wheezing and bibasilar rales. HEART: S1, S2. Regular. No murmur. EXTREMITIES: No clubbing, cyanosis. The patient has 2+ bilateral ankle edema. ABDOMEN: Soft and nontender. Bowel sounds present. Hepatosplenomegaly is absent. NEURO: Grossly nonfocal. The patient moving all extremities. LABORATORY DATA: White count is 10.1, hemoglobin is 11.3, hematocrit 32.7, platelets are 163, blood gas showed a pH of 7.44, pCO2 was 45, PO2 of 71 on 40% oxygen. Sodium 140, potassium 3.9, chloride 101, CO2 is 29, BUN is 25, creatinine is 1.0, glucose is 142. IMAGING: Chest x-ray was done and was seen personally. The patient seems to have bibasilar atelectasis, cannot rule out left basal infiltrate. Cardiomegaly was noted. IMPRESSION: 1. Onldc-wu-acnsuxz respiratory failure. 2. Chronic obstructive pulmonary disease with exacerbation. 3. Left lower lobe pneumonia. 4. Multiple other medical issues. PLAN: The patient has been doing fairly well. Has been on Rocephin and Zithromax and is on Solu- Medrol 100 mg IV q.6 hours. He has gotten a history of significant wheezing and has right lower lobe rales. I would continue the current antibiotic therapy on this patient. We would also check him for MRSA, PCR. Repeat a chest x-ray, blood gas in the morning, and would get a sputum culture done. Urine culture is growing Pseudomonas aeruginosa, which is vieira sensitive, therefore given the patient's allergy profile, I would change the Zithromax to Levaquin and continue other supportive care. Thank you very much for the consultation, I will follow the patient with you. [id number] cc: Bobby Fowler MD
[2016-03-25] MEDS: TORSEMIDE 20 MG TAB PO SCH (07:23)
[2016-03-25] MEDS: GUAIFENESIN 600 MG LA TAB PO SCH ×2 (07:23→20:33)
[2016-03-25] MEDS: FINASTERIDE 5 MG TAB PO SCH (07:23)
[2016-03-25] MEDS: METOPROLOL (TOPROL-XL) 50 MG TAB PO SCH (07:24)
--- NOTE | 2016-03-25 08:37 | DIRPT ---
CLINICAL DATA: Respiratory failure. EXAM: PORTABLE CHEST 1 VIEW COMPARISON: March 23, 2016. FINDINGS: Hypoinflation of the lungs is noted. Stable cardiomediastinal silhouette. No pneumothorax or pleural effusion is noted. Minimal bibasilar subsegmental atelectasis is noted. There is noted a rounded nodular density seen in the right mid lung concerning for possible pulmonary nodule. Bony thorax is unremarkable. Left-sided pacemaker is unchanged in position. IMPRESSION: Hypoinflation of the lungs with minimal bibasilar subsegmental atelectasis. Rounded nodular density seen in right midlung concerning for possible pulmonary nodule; chest CT is recommended for further evaluation. Electronically Signed By: Dedrick Mancia Jr, M.D. On: 03/25/2016 08:34
--- NOTE | 2016-03-25 09:19 | PCM.PULM ---
Chief Complaint: Respiratory failure acute on chronic COPD exacerbation Pneumonia Pulmonary fibrosis Patient in chair alert and responsive, was confused overnight. Follows commands. Breathing is still short. On oxygen. Current complaints: SOB,JIMENEZ,cough,wheeze, sputum. No chest pain reported Current medication list reviewed:yes Notes reviewed:yes, Events from last night noted and discussed with Clinical Staff GI/DVT prophylaxis:yes - Physical Examination Vital Signs and I&O: Last Vital Signs Temp 97.8 F 03/25/16 08:08 Pulse 72 03/25/16 08:08 Resp 18 03/25/16 08:08 BP 146/72 03/25/16 08:00 Pulse Ox 93 03/25/16 08:08 Oxygen Pulse Oxygen Saturation 93 O2 Device Nasal Cannula Oxygen Flow Rate 3 Fraction of Inspired Oxygen ( 50 FIO2) Intake & Output 03/22/16 03/23/16 03/24/16 03/25/16 23:59 23:59 23:59 23:59 Intake Total 530 1849 2643 1282 Output Total 399 619 2960 780 Balance 430 1199 1048 502 Patient's weight 79.469 kg 79.061 kg 79.18 kg 78.982 kg General: Alert, Oriented x3, Cooperative, Mild distress, Obese, Weakness, Fatigue Respiratory: Diminished, Rhonchi, Wheezes Cardiovascular: Regular rate, Regular rate and rhythm, Normal S1, No Gallops, Rubs/Murmurs, Normal S2, Good Pedal Pulses GI: Normal bowel sounds, Soft, Non tender, No hepatospenomegaly, No masses Extremities/Musculoskeletal: Normal pulses Skin: Warm,Dry and Intact, No rashes, No breakdown, No significant lesion Neurological: Normal Steady Gait, Normal speech, Normal tone, Cranial nerves 3- 12 NL Psych/Mental Status: Cooperative, Anxious, Confused Result Diagrams: 03/24/16 04:25 03/24/16 04:25 Labs (last 24 hours): Laboratory Results - last 24 hr 03/24/16 03/24/16 03/24/16 12:03 16:28 23:22 Puncture Site pH pCO2 pO2 HCO3 Total CO2 Base Excess FiO2 % Specimen Drawn By POC Capillary Glucose 154 H 151 H 132 H 03/25/16 03/25/16 05:00 05:04 Puncture Site Left radial pH 7.430 pCO2 48.0 H pO2 67.0 L HCO3 31.9 H Total CO2 33.4 H Base Excess 6.4 H FiO2 % 3 lpm Specimen Drawn By Bkl POC Capillary Glucose 129 H Lab/DI/Studies Reviewed: EKG: NSR, NO ST or ST wave changes noted Chest x-ray: was seen personally patient seems to have peribronchial coughing and possible right mid zone infiltrate versus nodule Microbiology 03/24/16 22:53 Nares Nasal Screen MRSA (PCR)(GALDINO) - Final NEGATIVE for MRSA DNA 03/22/16 16:40 Sputum Gram Stain - Final 03/22/16 16:40 Sputum Sputum Culture - Final Moraxella catarrhalis Medications Enoxaparin Sodium (Lovenox) 40 mg SQ 1800 [facility] Stop: 04/05/16 21:59 Last Admin: 03/24/16 18:14 Dose: 40 mg Methylprednisolone Sodium Succinate (Solu-Medrol) 100 mg IV Q6H [facility] Stop: 04/05/16 21:59 Last Admin: 03/25/16 09:49 Dose: 100 mg Metoprolol Succinate (Toprol Xl) 50 mg PO DAILY [facility] Stop: 04/06/16 08:59 Last Admin: 03/25/16 07:24 Dose: 50 mg Mirtazapine (Remeron) 30 mg PO QHS [facility] Stop: 04/05/16 20:59 Last Admin: 03/24/16 20:05 Dose: 30 mg Nitroglycerin (Ntg (Nitrostat Sublingual Tab)) 0.4 mg SL Q5MIN PRN PRN Reason: Chest Pain or Discomfort Stop: 04/06/16 16:59 Last Admin: 03/23/16 09:20 Dose: 0.4 mg Pantoprazole Sodium (Protonix) 40 mg PO 0600 [facility] Stop: 04/05/16 16:59 Last Admin: 03/25/16 06:04 Dose: 40 mg Ropinirole HCl (Requip) 1 mg PO HS [facility] Stop: 04/05/16 20:59 Last Admin: 03/24/16 20:06 Dose: 1 mg Sodium Chloride (Normal Saline) 1,000 mls @ 50 mls/hr IV Q24H [facility] Stop: 04/05/16 16:59 Last Admin: 03/25/16 09:52 Dose: 50 mls/hr Albuterol/Ipratropium (Duoneb) 3 ml NEB Q2H PRN PRN Reason: Wheezing Stop: 04/05/16 16:59 Last Admin: 03/24/16 05:35 Dose: 3 ml Albuterol/Ipratropium (Duoneb) 3 ml NEB RTQ6 [facility] Stop: 04/05/16 16:59 Last Admin: 03/25/16 09:25 Dose: 3 ml Alprazolam (Xanax) 0.25 mg PO HS PRN PRN Reason: Sleep or Insomnia Stop: 04/05/16 20:54 Last Admin: 03/24/16 20:04 Dose: 0.25 mg Budesonide (Pulmicort) 0.5 mg NEB RTBID [facility] Stop: 04/06/16 07:59 Last Admin: 03/25/16 09:30 Dose: 0.5 mg Ceftriaxone Sodium 1 gm/ (Dextrose) 100 mls @ 200 mls/hr IV Q24H [facility] Stop: 03/30/16 18:59 Last Admin: 03/24/16 18:14 Dose: 200 mls/hr Finasteride (Proscar) 5 mg PO DAILY [facility] Stop: 04/06/16 08:59 Last Admin: 03/25/16 07:23 Dose: 5 mg Guaifenesin (Mucinex) 1,200 mg PO Q12 [facility] Stop: 04/05/16 21:59 Last Admin: 03/25/16 07:23 Dose: 1,200 mg Insulin Human Regular (Humulin R) 0 units SQ Q6 [facility] PRN Reason: Protocol Stop: 04/05/16 16:59 Last Admin: 03/25/16 06:04 Dose: Not Given Levofloxacin/Dextrose (Levaquin 750 Mg) 750 mg in 150 mls @ 100 mls/hr IV Q24H [facility] Stop: 03/31/16 21:59 Last Admin: 03/24/16 23:22 Dose: 100 mls/hr Torsemide (Demadex) 20 mg PO QAM [facility] Stop: 04/06/16 08:59 Last Admin: 03/25/16 07:23 Dose: 20 mg Tramadol HCl (Ultram) 100 mg PO TID [facility] Stop: 04/05/16 20:59 Last Admin: 03/25/16 06:04 Dose: 100 mg - Assessment/Plan (1) Acute respiratory failure with hypoxia Acute J96.01 - ACUTE RESPIRATORY FAILURE WITH HYPOXIA Comment/Plan: Patient has been about the same and would continue the current Solu-Medrol continue the current antibiotics oxygen and supportive care patient has been ambulating a little but becomes extremely weak after that and therefore would not change the treatment at this time continue DVT and GI prophylaxis prognosis is guarded because of his chest x-ray showing mild pulmonary vascular congestion I would start the patient on diuretics (2) Bacterial pneumonia Acute J15.9 - UNSPECIFIED BACTERIAL PNEUMONIA Comment/Plan: Chest x-ray shows an infiltrate in the right mid lung zone that could have been artifact however I would ordered a CT scan for this patient to evaluate that continue other supportive care along with antibiotics and oxygen (3) COPD (chronic obstructive pulmonary disease) Acute J44.9 - CHRONIC OBSTRUCTIVE PULMONARY DISEASE, UNSPECIFIED COPD with acute exacerbation C E J44.1 - Chronic obstructive pulmonary disease with (acute) exacerbation Comment/Plan: Continue steroids as mentioned above (4) GERD (gastroesophageal reflux disease) Acute K21.9 - GASTRO-ESOPHAGEAL REFLUX DISEASE WITHOUT ESOPHAGITIS without esophagitis K21.9 - Gastro-esophageal reflux disease without esophagitis Comment/Plan: No change in current treatment (5) Pulmonary fibrosis Chronic J84.10 - PULMONARY FIBROSIS, UNSPECIFIED Comment/Plan: Stable CT scan is pending I personally saw and evaluated the patient.: Yes Case Care Discussed with: Patient Education/Counseling Given To: Patient Education/Counseling Given Regarding: Diagnosis, Treatment, Prognosis, Follow Up , Disposition Plan
[2016-03-25] MEDS: BUDESONIDE 0.5 MG NEB NEB SCH ×2 (09:30→20:16)
[2016-03-25] MEDS: SENNA CONCENTRATE TAB PO SCH (09:49)
[2016-03-25] MEDS: NS 1,000 ML IV SCH (09:52)
--- NOTE | 2016-03-25 13:43 | GENMEDPROG ---
Chief Complaint: Slightly better today. Still some expiratory wheezing but overall improving. Less cough and congestion. Complains of some back pain Notes Reviewed: Yes Events from last night noted and discussed with Clinical Staff Current Medication List: Reviewed Currently: Reports: Cough, Wheezing, JIMENEZ, SOB. Denies: Nausea and Vomiting, Abdominal Pain - Physical Examination Vital Signs and I&O: Last Vital Signs Temp 97.8 F 03/25/16 12:00 Pulse 96 03/25/16 12:00 Resp 18 03/25/16 12:00 BP 157/77 03/25/16 12:00 Pulse Ox 94 03/25/16 12:00 Oxygen Pulse Oxygen Saturation 94 O2 Device Nasal Cannula Oxygen Flow Rate 3 Fraction of Inspired Oxygen ( 2 FIO2) Intake & Output 03/22/16 03/23/16 03/24/16 03/25/16 23:59 23:59 23:59 23:59 Intake Total 530 1849 2643 1282 Output Total 338 859 5686 1180 Balance 430 1199 1048 102 Patient's weight 79.469 kg 79.061 kg 79.18 kg 78.982 kg General: Alert, Moderate distress. negative: Oriented x3, Well appearing ( Rafiq ill-appearing) HEENT: Normal, PERRLA, EOMI, Anicteric Sclera Neck: Non-tender, Full range of motion Lymphatics: Normal Respiratory: Accessory Muscle Use, Diminished, Rhonchi, Wheezes Cardiovascular: Regular rate and rhythm, No Gallops,Rubs/Murmurs GI: Normal bowel sounds, Soft, Non tender, No hepatospenomegaly, No masses Extremities/Musculoskeletal: Normal pulses, Swelling. negative: Tenderness Skin: Warm,Dry and Intact, No rashes Neurological: Normal Steady Gait, Normal speech, Strength at 5/5 X4 ext, Normal tone, Cranial nerves 3-12 NL Psych/Mental Status: Appropriate, Normal Affect, Cooperative Lab/DI/Studies Reviewed: Laboratory Results - last 24 hr 03/24/16 03/24/16 03/25/16 16:28 23:22 05:00 Puncture Site Left radial pH 7.430 pCO2 48.0 H pO2 67.0 L HCO3 31.9 H Total CO2 33.4 H Base Excess 6.4 H FiO2 % 3 lpm Specimen Drawn By Bkl POC Capillary Glucose 151 H 132 H 03/25/16 03/25/16 05:04 11:01 Puncture Site pH pCO2 pO2 HCO3 Total CO2 Base Excess FiO2 % Specimen Drawn By POC Capillary Glucose 129 H 134 H - Assessment (1) Acute respiratory failure with hypoxia Acute J96.01 - ACUTE RESPIRATORY FAILURE WITH HYPOXIA Comment/Plan: Some better today. Less distress. Remains hypoxic and ill-appearing. Still with wheezing and rhonchi but work of breathing has improved. Continue IV antibiotics and pulmonary toilet. Sputum culture is growing out Moraxella. (2) Bacterial pneumonia Acute J15.9 - UNSPECIFIED BACTERIAL PNEUMONIA Comment/Plan: Sputum culture with Moraxella. Continue antibiotics and pulmonary toilet (3) COPD (chronic obstructive pulmonary disease) Acute J44.9 - CHRONIC OBSTRUCTIVE PULMONARY DISEASE, UNSPECIFIED Qualifiers: COPD type: COPD with acute exacerbation Chronic bronchitis type: C Emphysema type: E Qualified Code(s): J44.1 - Chronic obstructive pulmonary disease with (acute) exacerbation Comment/Plan: Slowly improving. Continue IV steroids and pulmonary toilet. Encourage incentive spirometry and activity. (4) GERD (gastroesophageal reflux disease) Acute K21.9 - GASTRO-ESOPHAGEAL REFLUX DISEASE WITHOUT ESOPHAGITIS Qualifiers: Esophagitis presence: without esophagitis Qualified Code(s): K21.9 - Gastro -esophageal reflux disease without esophagitis Comment/Plan: Continue PPI (5) Adolescent depression Chronic F32.9 - MAJOR DEPRESSIVE DISORDER, SINGLE EPISODE, UNSPECIFIED Comment/Plan: Continue home meds and p.r.n. benzos (6) BPH (benign prostatic hyperplasia) Chronic N40.0 - BENIGN PROSTATIC HYPERPLASIA WITHOUT LOWER URINRY TRACT SYMP Qualifiers: Prostatic enlargement morphology: non-nodular Lower urinary tract symptom presence: symptoms absent Qualified Code(s): N40.0 - Benign prostatic hyperplasia without lower urinary tract symptoms Comment/Plan: Stable. Monitor urinary symptoms Case Care Discussed with: Patient, Consultants, Nursing Staff, Physical Therapy , Resource Management, Respiratory Therapy, Acoustical Material Worker
[2016-03-25] MEDS ORDERED: TRAMADOL HCL 50 MG TAB PO ONE (15:28)
[2016-03-25] MEDS: FUROSEMIDE 20 MG/2 ML VIAL IV SCH ×2 (15:30→20:34)
[2016-03-25] MEDS: ENOXAPARIN 40 MG/0.4 ML PFS SQ SCH (18:04)
[2016-03-25] MEDS: CEFTRIAXONE 1 GM in D5W 100 ML IV SCH (18:04)
[2016-03-25] MEDS: ROPINIROLE 1 MG TAB PO SCH (20:34)
[2016-03-25] MEDS: MIRTAZAPINE 15 MG TAB PO SCH (20:34)
[2016-03-25] MEDS: PEG-ELECTROLYTE 17 GM PACK PO SCH (20:34)
[2016-03-25] MEDS: Levofloxacin 750 mg/150 ml D5W 750 MG/150 ML RTU IV SCH (23:42)
[2016-03-26] MEDS: REGULAR INSULIN 100 UNITS/ML - 3 ML VIAL SQ SCH ×4 (01:30→16:00)
[2016-03-26] MEDS: Albuterol/Ipratropium Neb 3 ML NEB NEB SCH ×4 (01:46→20:06)
[2016-03-26] MEDS: FUROSEMIDE 20 MG/2 ML VIAL IV SCH ×3 (05:40→22:16)
[2016-03-26] MEDS: TRAMADOL HCL 50 MG TAB PO SCH ×3 (05:40→22:16)
[2016-03-26] MEDS: PANTOPRAZOLE 40 MG TAB PO SCH (05:40)
[2016-03-26] MEDS: METHYLPREDNISOLONE 125 MG/2 ML VIAL IV SCH ×4 (05:41→22:16)
[2016-03-26] MEDS: METOPROLOL (TOPROL-XL) 50 MG TAB PO SCH (08:23)
[2016-03-26] MEDS: FINASTERIDE 5 MG TAB PO SCH (08:23)
[2016-03-26] MEDS: GUAIFENESIN 600 MG LA TAB PO SCH ×2 (08:23→22:14)
[2016-03-26] MEDS: SENNA CONCENTRATE TAB PO SCH (08:23)
[2016-03-26] MEDS: BUDESONIDE 0.5 MG NEB NEB SCH ×2 (08:47→20:09)
--- NOTE | 2016-03-26 09:50 | PCM.PULM ---
Chief Complaint: Patient sitting on chair alert and responsive follows commands patient in no acute distress and wheezing has improved. On nasal cannula oxygen Current complaints:Dyspnea, JIMENEZ,slight cough,wheeze. No chest pain reported Medication list and notes reviewed:yes, Events from last night noted and discussed with Clinical Staff - Physical Examination Vital Signs and I&O: Last Vital Signs Temp 97.5 F 03/26/16 08:12 Pulse 79 03/26/16 09:17 Resp 18 03/26/16 08:12 BP 132/65 03/26/16 08:12 Pulse Ox 93 03/26/16 08:12 Oxygen Pulse Oxygen Saturation 93 O2 Device Nasal Cannula Oxygen Flow Rate 3 Fraction of Inspired Oxygen ( 2 FIO2) Intake & Output 03/23/16 03/24/16 03/25/16 03/26/16 23:59 23:59 23:59 23:59 Intake Total 1849 2643 2300 772 Output Total 650 1595 2930 950 Balance 1199 1048 -630 -178 Patient's weight 79.061 kg 79.18 kg 78.982 kg 78.471 kg General: Alert, Oriented x3, Cooperative, Mild distress, Fatigue (improved) Respiratory: Diminished (at bases), Rhonchi, Wheezes (improving) Cardiovascular: Regular rate, Regular rate and rhythm, Normal S1, No Gallops, Rubs/Murmurs, Normal S2 GI: Normal bowel sounds, Soft, Non tender, No hepatospenomegaly, No masses, Obese Extremities/Musculoskeletal: Normal pulses, Edema (BLEs 1+ edema noted) Skin: Warm,Dry and Intact, No rashes, No breakdown, No significant lesion Neurological: Normal Steady Gait, Normal speech, Normal tone, Cranial nerves 3- 12 NL Psych/Mental Status: Appropriate, Disoriented (a little overnight) Result Diagrams: 03/24/16 04:25 03/24/16 04:25 Labs (last 24 hours): Laboratory Results - last 24 hr 03/25/16 03/25/16 03/26/16 11:01 16:58 00:03 POC Capillary Glucose 134 H 126 H 159 H 03/26/16 05:21 POC Capillary Glucose 163 H Lab/DI/Studies Reviewed: EKG: NSR, NO ST or ST wave changes noted CT CHEST WITHOUT CONTRAST: CT scan of the chest was seen personally patient seems to have bibasilar scarring with no other abnormality Medications Enoxaparin Sodium (Lovenox) 40 mg SQ 1800 [facility] Stop: 04/05/16 21:59 Last Admin: 03/24/16 18:14 Dose: 40 mg Methylprednisolone Sodium Succinate (Solu-Medrol) 100 mg IV Q6H [facility] Stop: 04/05/16 21:59 Last Admin: 03/25/16 09:49 Dose: 100 mg Metoprolol Succinate (Toprol Xl) 50 mg PO DAILY [facility] Stop: 04/06/16 08:59 Last Admin: 03/25/16 07:24 Dose: 50 mg Mirtazapine (Remeron) 30 mg PO QHS [facility] Stop: 04/05/16 20:59 Last Admin: 03/24/16 20:05 Dose: 30 mg Nitroglycerin (Ntg (Nitrostat Sublingual Tab)) 0.4 mg SL Q5MIN PRN PRN Reason: Chest Pain or Discomfort Stop: 04/06/16 16:59 Last Admin: 03/23/16 09:20 Dose: 0.4 mg Pantoprazole Sodium (Protonix) 40 mg PO 0600 [facility] Stop: 04/05/16 16:59 Last Admin: 03/25/16 06:04 Dose: 40 mg Ropinirole HCl (Requip) 1 mg PO HS [facility] Stop: 04/05/16 20:59 Last Admin: 03/24/16 20:06 Dose: 1 mg Albuterol/Ipratropium (Duoneb) 3 ml NEB Q2H PRN PRN Reason: Wheezing Stop: 04/05/16 16:59 Last Admin: 03/24/16 05:35 Dose: 3 ml Albuterol/Ipratropium (Duoneb) 3 ml NEB RTQ6 [facility] Stop: 04/05/16 16:59 Last Admin: 03/25/16 09:25 Dose: 3 ml Alprazolam (Xanax) 0.25 mg PO HS PRN PRN Reason: Sleep or Insomnia Stop: 04/05/16 20:54 Last Admin: 03/24/16 20:04 Dose: 0.25 mg Budesonide (Pulmicort) 0.5 mg NEB RTBID [facility] Stop: 04/06/16 07:59 Last Admin: 03/25/16 09:30 Dose: 0.5 mg Ceftriaxone Sodium 1 gm/ (Dextrose) 100 mls @ 200 mls/hr IV Q24H [facility] Stop: 03/30/16 18:59 Last Admin: 03/24/16 18:14 Dose: 200 mls/hr Finasteride (Proscar) 5 mg PO DAILY [facility] Stop: 04/06/16 08:59 Last Admin: 03/25/16 07:23 Dose: 5 mg Guaifenesin (Mucinex) 1,200 mg PO Q12 [facility] Stop: 04/05/16 21:59 Last Admin: 03/25/16 07:23 Dose: 1,200 mg Insulin Human Regular (Humulin R) 0 units SQ Q6 [facility] PRN Reason: Protocol Stop: 04/05/16 16:59 Last Admin: 03/25/16 06:04 Dose: Not Given Levofloxacin/Dextrose (Levaquin 750 Mg) 750 mg in 150 mls @ 100 mls/hr IV Q24H [facility] Stop: 03/31/16 21:59 Last Admin: 03/24/16 23:22 Dose: 100 mls/hr Torsemide (Demadex) 20 mg PO QAM [facility] Stop: 04/06/16 08:59 Last Admin: 03/25/16 07:23 Dose: 20 mg Tramadol HCl (Ultram) 100 mg PO TID [facility] Stop: 04/05/16 20:59 Last Admin: 03/25/16 06:04 Dose: 100 mg - Assessment/Plan (1) Acute respiratory failure with hypoxia Acute J96.01 - ACUTE RESPIRATORY FAILURE WITH HYPOXIA Comment/Plan: Patient has been improving significantly I would cut down the Solu-Medrol at this time continue nebulizers oxygen DVT and GI prophylaxis CT scan of the chest was noted long-term prognosis guarded would follow the patient closely (2) Bacterial pneumonia Acute J15.9 - UNSPECIFIED BACTERIAL PNEUMONIA Comment/Plan: Patient has no acute infiltrate on the CT scan at this time continue other supportive care along with antibiotics and oxygen (3) COPD (chronic obstructive pulmonary disease) Acute J44.9 - CHRONIC OBSTRUCTIVE PULMONARY DISEASE, UNSPECIFIED COPD with acute exacerbation C E J44.1 - Chronic obstructive pulmonary disease with (acute) exacerbation Comment/Plan: Continue steroids as mentioned above (4) GERD (gastroesophageal reflux disease) Acute K21.9 - GASTRO-ESOPHAGEAL REFLUX DISEASE WITHOUT ESOPHAGITIS without esophagitis K21.9 - Gastro-esophageal reflux disease without esophagitis Comment/Plan: No change in current treatment (5) Pulmonary fibrosis Chronic J84.10 - PULMONARY FIBROSIS, UNSPECIFIED Comment/Plan: CT scan shows no evidence of significant pulmonary fibrosis patient does have some bibasilar scar is which are most likely the sequelae of of old infections
--- NOTE | 2016-03-26 11:45 | GENMEDPROG ---
Chief Complaint: Overall improving. Still mildly hypoxic with some distress. Much improved wheezing and congestion. Notes Reviewed: Yes Events from last night noted and discussed with Clinical Staff Current Medication List: Reviewed Currently: Reports: Cough, Wheezing, JIMENEZ, SOB. Denies: Nausea and Vomiting, Abdominal Pain - Physical Examination Vital Signs and I&O: Last Vital Signs Temp 97.5 F 03/26/16 11:12 Pulse 86 03/26/16 11:12 Resp 18 03/26/16 11:12 BP 142/64 03/26/16 11:12 Pulse Ox 94 03/26/16 11:12 Oxygen Pulse Oxygen Saturation 94 O2 Device Nasal Cannula Oxygen Flow Rate 3 Fraction of Inspired Oxygen ( 2 FIO2) Intake & Output 03/23/16 03/24/16 03/25/16 03/26/16 23:59 23:59 23:59 23:59 Intake Total 1849 2643 2300 892 Output Total 650 1595 2930 950 Balance 1199 1048 -630 -58 Patient's weight 79.061 kg 79.18 kg 78.982 kg 78.471 kg General: Alert, Oriented x3, Mild distress. negative: Well appearing (Rafiq ill -appearing) HEENT: Normal, PERRLA, EOMI, Anicteric Sclera Neck: Non-tender, Full range of motion Lymphatics: Normal Respiratory: Diminished, Rhonchi, Wheezes Cardiovascular: Regular rate and rhythm, No Gallops,Rubs/Murmurs GI: Normal bowel sounds, Soft, Non tender, No hepatospenomegaly, No masses Extremities/Musculoskeletal: Normal pulses, Swelling. negative: Tenderness Skin: Warm,Dry and Intact, No rashes Neurological: Normal Steady Gait, Normal speech, Strength at 5/5 X4 ext, Normal tone, Cranial nerves 3-12 NL Psych/Mental Status: Appropriate, Normal Affect, Cooperative Lab/DI/Studies Reviewed: Laboratory Results - last 24 hr 03/25/16 03/26/16 03/26/16 16:58 00:03 05:21 POC Capillary Glucose 126 H 159 H 163 H 03/26/16 11:10 POC Capillary Glucose 162 H - Assessment (1) Acute respiratory failure with hypoxia Acute J96.01 - ACUTE RESPIRATORY FAILURE WITH HYPOXIA Comment/Plan: Overall some better. Still weak and debilitated. Continue IV antibiotics and pulmonary toilet. Sputum culture is growing out Moraxella. Will need intermediate facility placement at discharge. Likely 2-3 days (2) Bacterial pneumonia Acute J15.9 - UNSPECIFIED BACTERIAL PNEUMONIA Comment/Plan: Sputum culture with Moraxella. Continue antibiotics and pulmonary toilet (3) COPD (chronic obstructive pulmonary disease) Acute J44.9 - CHRONIC OBSTRUCTIVE PULMONARY DISEASE, UNSPECIFIED Qualifiers: COPD type: COPD with acute exacerbation Chronic bronchitis type: C Emphysema type: E Qualified Code(s): J44.1 - Chronic obstructive pulmonary disease with (acute) exacerbation Comment/Plan: Slowly improving. Continue IV steroids and pulmonary toilet. Encourage incentive spirometry and activity. (4) GERD (gastroesophageal reflux disease) Acute K21.9 - GASTRO-ESOPHAGEAL REFLUX DISEASE WITHOUT ESOPHAGITIS Qualifiers: Esophagitis presence: without esophagitis Qualified Code(s): K21.9 - Gastro -esophageal reflux disease without esophagitis Comment/Plan: Continue PPI (5) Adolescent depression Chronic F32.9 - MAJOR DEPRESSIVE DISORDER, SINGLE EPISODE, UNSPECIFIED Comment/Plan: Continue home meds and p.r.n. benzos (6) BPH (benign prostatic hyperplasia) Chronic N40.0 - BENIGN PROSTATIC HYPERPLASIA WITHOUT LOWER URINRY TRACT SYMP Qualifiers: Prostatic enlargement morphology: non-nodular Lower urinary tract symptom presence: symptoms absent Qualified Code(s): N40.0 - Benign prostatic hyperplasia without lower urinary tract symptoms Comment/Plan: Stable. Monitor urinary symptoms Case Care Discussed with: Patient, Consultants, Nursing Staff, Resource Management, Respiratory Therapy
--- NOTE | 2016-03-26 11:48 | DIRPT ---
CLINICAL DATA: Respiratory failure. Shortness breath for 2 weeks. Recently treated for pneumonia. EXAM: CT CHEST WITHOUT CONTRAST TECHNIQUE: Multidetector CT imaging of the chest was performed following the standard protocol without IV contrast. COMPARISON: Chest x-ray dated 03/25/[address] dated 04/25/2014. FINDINGS: Recent chest x-ray report questioned suspicious pulmonary nodule within the right lung. There is chronic atelectasis/ scarring at each lung base. Lungs are otherwise clear. No pulmonary nodule or mass. No evidence of pneumonia. No pleural effusion. No pneumothorax. Heart size is upper normal. No pericardial effusion. Scattered atherosclerotic changes noted along the león of the normal- caliber thoracic aorta. No mass or enlarged lymph nodes within the mediastinum or perihilar regions. Benign bone island identified within the right anterior fourth rib. No acute or suspicious osseous abnormality seen. Superficial soft tissues are unremarkable. Limited images of the upper abdomen are unremarkable. IMPRESSION: 1. No pulmonary nodule or mass. The nodular density appreciated on chest x-ray of 03/25/2016 is presumed to be either artifactual or related to the benign bone island in the anterior right fourth rib. 2. Overall, no acute findings. Stable chronic atelectasis/scarring at each lung base. No evidence of pneumonia seen. No pleural effusion. No pneumothorax. Electronically Signed By: Octavio Mars M.D. On: 03/26/2016 11:45
[2016-03-26] MEDS: ENOXAPARIN 40 MG/0.4 ML PFS SQ SCH (16:00)
[2016-03-26] MEDS: CEFTRIAXONE 1 GM in D5W 100 ML IV SCH (18:16)
[2016-03-26] MEDS: PEG-ELECTROLYTE 17 GM PACK PO SCH (22:14)
[2016-03-26] MEDS: MIRTAZAPINE 15 MG TAB PO SCH (22:14)
[2016-03-26] MEDS: ROPINIROLE 1 MG TAB PO SCH (22:14)
[2016-03-26] MEDS: ALPRAZOLAM 0.25 MG TAB PO PRN (22:16)
[2016-03-26] MEDS: Levofloxacin 750 mg/150 ml D5W 750 MG/150 ML RTU IV SCH (22:21)
[2016-03-27] MEDS: Albuterol/Ipratropium Neb 3 ML NEB NEB SCH ×3 (01:22→13:51)
[2016-03-27] MEDS: REGULAR INSULIN 100 UNITS/ML - 3 ML VIAL SQ SCH ×3 (01:53→11:38)
[2016-03-27] MEDS: METHYLPREDNISOLONE 125 MG/2 ML VIAL IV SCH ×2 (03:08→08:12)
[2016-03-27 03:16] VITALS: TEMP 97.5
[2016-03-27 03:26] VITALS: BMI 27.4
[2016-03-27] MEDS: PANTOPRAZOLE 40 MG TAB PO SCH (06:04)
[2016-03-27] MEDS: TRAMADOL HCL 50 MG TAB PO SCH (06:04)
[2016-03-27] MEDS: FUROSEMIDE 20 MG/2 ML VIAL IV SCH (06:04)
[2016-03-27] MEDS: FINASTERIDE 5 MG TAB PO SCH (08:12)
[2016-03-27] MEDS: METOPROLOL (TOPROL-XL) 50 MG TAB PO SCH (08:12)
[2016-03-27] MEDS: GUAIFENESIN 600 MG LA TAB PO SCH (08:12)
[2016-03-27] MEDS: SENNA CONCENTRATE TAB PO SCH (08:12)
[2016-03-27] MEDS: BUDESONIDE 0.5 MG NEB NEB SCH (08:23)
--- NOTE | 2016-03-27 10:18 | GENMEDPROG ---
[id number] Abdominal Pain - Physical Examination Vital Signs and I&O: Last Vital Signs Temp 97.5 F 03/27/16 07:48 Pulse 84 03/27/16 09:02 Resp 18 03/27/16 07:48 BP 168/94 03/27/16 07:48 Pulse Ox 93 03/27/16 08:00 Oxygen Pulse Oxygen Saturation 93 O2 Device Nasal Cannula Oxygen Flow Rate 2 Fraction of Inspired Oxygen ( 2 FIO2) Intake & Output 03/24/16 03/25/16 03/26/16 03/27/16 23:59 23:59 23:59 23:59 Intake Total 2643 2300 1252 765 Output Total 1595 2930 1800 650 Balance 9033 -251 -298 115 Patient's weight 79.18 kg 78.982 kg 78.471 kg 79.469 kg General: Alert, Oriented x3, Mild distress. negative: Well appearing (Rafiq ill -appearing) HEENT: Normal, PERRLA, EOMI, Anicteric Sclera Neck: Non-tender, Full range of motion Lymphatics: Normal Respiratory: Diminished, Rhonchi, Wheezes Cardiovascular: Regular rate and rhythm, No Gallops,Rubs/Murmurs GI: Normal bowel sounds, Soft, Non tender, No hepatospenomegaly, No masses Extremities/Musculoskeletal: Normal pulses, Swelling. negative: Tenderness Skin: Warm,Dry and Intact, No rashes Neurological: Normal Steady Gait, Normal speech, Strength at 5/5 X4 ext, Normal tone, Cranial nerves 3-12 NL Psych/Mental Status: Appropriate, Normal Affect, Cooperative - Assessment (1) Acute respiratory failure with hypoxia Acute J96.01 - ACUTE RESPIRATORY FAILURE WITH HYPOXIA Comment/Plan: Overall some better. Still weak and debilitated. Continue IV antibiotics and pulmonary toilet. Sputum culture is growing out Moraxella. Will need group home facility placement at discharge. Likely 2-3 days (2) Pseudomonas pneumonia Acute J15.1 - PNEUMONIA DUE TO PSEUDOMONAS Qualifiers: Laterality: right Lung location: lower lobe of lung Qualified Code(s): J15.1 - Pneumonia due to Pseudomonas Comment/Plan: Sputum is growing out pseudomonas now. Patient is doing better, need to be sure to cover for this with antibiotic choice at discharge. (3) COPD with acute exacerbation Acute J44.1 - CHRONIC OBSTRUCTIVE PULMONARY DISEASE W (ACUTE) EXACERBATION Comment/Plan: Patient will receive PO steroids and nebulized bronchodilators. Continue aggressive pulmonary toilet and mucolytics (4) GERD (gastroesophageal reflux disease) Acute K21.9 - GASTRO-ESOPHAGEAL REFLUX DISEASE WITHOUT ESOPHAGITIS Qualifiers: Esophagitis presence: without esophagitis Qualified Code(s): K21.9 - Gastro -esophageal reflux disease without esophagitis Comment/Plan: Continue PPI (5) BPH (benign prostatic hyperplasia) Chronic N40.0 - BENIGN PROSTATIC HYPERPLASIA WITHOUT LOWER URINRY TRACT SYMP Qualifiers: Prostatic enlargement morphology: non-nodular Lower urinary tract symptom presence: symptoms absent Qualified Code(s): N40.0 - Benign prostatic hyperplasia without lower urinary tract symptoms Comment/Plan: Stable. Monitor urinary symptoms (6) Pulmonary fibrosis Chronic J84.10 - PULMONARY FIBROSIS, UNSPECIFIED Comment/Plan: As per Pulmonary. (7) Restless leg syndrome Chronic G25.81 - RESTLESS LEGS SYNDROME
--- NOTE | 2016-03-27 10:22 | PCM.PULM ---
Chief Complaint: Uneventful overnight Patient sitting on chair resting comfortably. Feeling better breathing is slowly improving. Current medication list reviewed:yes Notes reviewed:yes, Events from last night noted and discussed with Clinical Staff DVT prophylaxis:yes - Physical Examination Vital Signs and I&O: Last Vital Signs Temp 97.5 F 03/27/16 07:48 Pulse 84 03/27/16 09:02 Resp 18 03/27/16 07:48 BP 168/94 03/27/16 07:48 Pulse Ox 93 03/27/16 08:00 Oxygen Pulse Oxygen Saturation 93 O2 Device Nasal Cannula Oxygen Flow Rate 2 Fraction of Inspired Oxygen ( 2 FIO2) Intake & Output 03/24/16 03/25/16 03/26/16 03/27/16 23:59 23:59 23:59 23:59 Intake Total 2643 2300 1252 765 Output Total 1595 2930 1800 650 Balance 1048 -630 -548 115 Patient's weight 79.18 kg 78.982 kg 78.471 kg 79.469 kg General: Alert, Oriented x3, Mild distress, Well appearing, Well nourished, Obese Respiratory: Diminished, Rhonchi, Wheezes (Occasional) Cardiovascular: Regular rate, Regular rate and rhythm, Normal S1, No Gallops, Rubs/Murmurs, Normal S2 GI: Normal bowel sounds, Soft, Non tender, No hepatospenomegaly, No masses Extremities/Musculoskeletal: Normal pulses, Swelling Skin: Warm,Dry and Intact, No rashes, No breakdown, No significant lesion Neurological: Normal Steady Gait, Normal speech, Normal tone, Cranial nerves 3- 12 NL Psych/Mental Status: Normal Affect, Cooperative, Confused (at times) Result Diagrams: 03/24/16 04:25 03/24/16 04:25 Labs (last 24 hours): Laboratory Results - last 24 hr 03/27/16 06:24 POC Capillary Glucose 126 H Lab/DI/Studies Reviewed: Microbiology 03/24/16 22:54 Sputum Gram Stain - Final 03/24/16 22:54 Sputum Sputum Culture - Preliminary Pseudomonas species EKG: NSR, NO ST or ST wave changes noted Medications: Metoprolol Succinate (Toprol Xl) 50 mg PO DAILY [facility] Stop: 04/06/16 08:59 Last Admin: 03/25/16 07:24 Dose: 50 mg Mirtazapine (Remeron) 30 mg PO QHS [facility] Stop: 04/05/16 20:59 Last Admin: 03/24/16 20:05 Dose: 30 mg Nitroglycerin (Ntg (Nitrostat Sublingual Tab)) 0.4 mg SL Q5MIN PRN PRN Reason: Chest Pain or Discomfort Stop: 04/06/16 16:59 Last Admin: 03/23/16 09:20 Dose: 0.4 mg Methylprednisolone Sodium Succinate (Solu-Medrol) 60 mg IV Q6H [facility] Stop: 04/09/16 20:59 Last Admin: 03/27/16 08:12 Dose: 60 mg Albuterol/Ipratropium (Duoneb) 3 ml NEB Q2H PRN PRN Reason: Wheezing Stop: 04/05/16 16:59 Last Admin: 03/24/16 05:35 Dose: 3 ml Albuterol/Ipratropium (Duoneb) 3 ml NEB RTQ6 [facility] Stop: 04/05/16 16:59 Last Admin: 03/25/16 09:25 Dose: 3 ml Alprazolam (Xanax) 0.25 mg PO HS PRN PRN Reason: Sleep or Insomnia Stop: 04/05/16 20:54 Last Admin: 03/24/16 20:04 Dose: 0.25 mg Budesonide (Pulmicort) 0.5 mg NEB RTBID [facility] Stop: 04/06/16 07:59 Last Admin: 03/25/16 09:30 Dose: 0.5 mg Ceftriaxone Sodium 1 gm/ (Dextrose) 100 mls @ 200 mls/hr IV Q24H [facility] Stop: 03/30/16 18:59 Last Admin: 03/24/16 18:14 Dose: 200 mls/hr Finasteride (Proscar) 5 mg PO DAILY [facility] Stop: 04/06/16 08:59 Last Admin: 03/25/16 07:23 Dose: 5 mg Guaifenesin (Mucinex) 1,200 mg PO Q12 [facility] Stop: 04/05/16 21:59 Last Admin: 03/25/16 07:23 Dose: 1,200 mg Insulin Human Regular (Humulin R) 0 units SQ Q6 [facility] PRN Reason: Protocol Stop: 04/05/16 16:59 Last Admin: 03/25/16 06:04 Dose: Not Given Levofloxacin/Dextrose (Levaquin 750 Mg) 750 mg in 150 mls @ 100 mls/hr IV Q24H [facility] Stop: 03/31/16 21:59 Last Admin: 03/24/16 23:22 Dose: 100 mls/hr Torsemide (Demadex) 20 mg PO QAM [facility] Stop: 04/06/16 08:59 Last Admin: 03/25/16 07:23 Dose: 20 mg Tramadol HCl (Ultram) 100 mg PO TID [facility] Stop: 04/05/16 20:59 Last Admin: 03/25/16 06:04 Dose: 100 mg - Assessment/Plan (1) Acute respiratory failure with hypoxia Acute J96.01 - ACUTE RESPIRATORY FAILURE WITH HYPOXIA Comment/Plan: 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 I will discuss the patient with the hospital as the patient is on prednisone taper would continue supportive care with DVT and GI prophylaxis would follow the patient as an outpatient in 1 week or so in my office (2) COPD (chronic obstructive pulmonary disease) Acute J44.9 - CHRONIC OBSTRUCTIVE PULMONARY DISEASE, UNSPECIFIED COPD with acute exacerbation C E J44.1 - Chronic obstructive pulmonary disease with (acute) exacerbation Comment/Plan: Continue steroids as mentioned above and would taper them slowly (3) GERD (gastroesophageal reflux disease) Acute K21.9 - GASTRO-ESOPHAGEAL REFLUX DISEASE WITHOUT ESOPHAGITIS without esophagitis K21.9 - Gastro-esophageal reflux disease without esophagitis Comment/Plan: Continue treatment (4) Pulmonary fibrosis Chronic J84.10 - PULMONARY FIBROSIS, UNSPECIFIED Comment/Plan: CT scan shows no evidence of significant pulmonary fibrosis patient does have some bibasilar scar is which are most likely the sequelae of of old infections
[2016-03-27 11:53] VITALS: BP 141/87
--- NOTE | 2016-03-27 13:37 | PCM.DCS92 ---
[id number] HYPOXIA Present on Admission: Yes Comment: Overall some better. Still weak and debilitated. Continue IV antibiotics and pulmonary toilet. Sputum culture is growing out Moraxella. Will need senior care facility placement at discharge. Likely 2-3 days (2) Pseudomonas pneumonia Acute J15.1 - PNEUMONIA DUE TO PSEUDOMONAS Present on Admission: Yes left lower lobe of lung J15.1 - Pneumonia due to Pseudomonas Comment: Sputum culture + Pseudomonas. Continue antibiotics and pulmonary toilet. Patient doing well, needs 14 days of Levaquin. (3) GERD (gastroesophageal reflux disease) Acute K21.9 - GASTRO-ESOPHAGEAL REFLUX DISEASE WITHOUT ESOPHAGITIS without esophagitis K21.9 - Gastro-esophageal reflux disease without esophagitis Comment: Continue PPI (4) COPD with acute exacerbation Acute J44.1 - CHRONIC OBSTRUCTIVE PULMONARY DISEASE W (ACUTE) EXACERBATION Present on Admission: Yes Comment: Patient will receive PO steroids and nebulized bronchodilators. Continue aggressive pulmonary toilet and mucolytics (5) BPH (benign prostatic hyperplasia) Chronic N40.0 - BENIGN PROSTATIC HYPERPLASIA WITHOUT LOWER URINRY TRACT SYMP Present on Admission: Yes non-nodular symptoms absent N40.0 - Benign prostatic hyperplasia without lower urinary tract symptoms Comment: Stable. Monitor urinary symptoms (6) Pulmonary fibrosis Chronic J84.10 - PULMONARY FIBROSIS, UNSPECIFIED Present on Admission: Yes Comment: As per Pulmonary. (7) Restless leg syndrome Chronic G25.81 - RESTLESS LEGS SYNDROME Present on Admission: Yes Discharge Disposition: Longterm Facility Discharge Condition: Improved Cognitive Discharge Status: Unimpaired Fuctional Discharge Status: Cane Assistance, Deconditioning, Ambulatory Dysfunction, Dyspnea with ambulation Physician Follow up/Referrals: Markus Silver II, MD [Primary Care Provider] - Hospital to call w/ appt. (1 week) Home Medications / New Prescriptions: New Guaifenesin [Mucinex] 1,200 mg PO Q12 #60 tablet.er Levofloxacin [Levaquin] 750 mg PO DAILY #10 tablet PEG-Electrolytes (Miralax) [Miralax] 17 gm PO HS #30 pack Prednisone [Sterapred Ds] 10 mg PO DIR #21 pack Continue Metoprolol Succinate 50 mg PO DAILY Finasteride [Proscar] 5 mg PO DAILY Aspirin [Aspirin EC] 81 mg PO DAILY Tramadol HCl [Ultram] 100 mg PO TID Budesonide/Formoterol Fumarate [Symbicort 80-4.5 Mcg Inhaler] 2 puff INH BID Alprazolam 0.25 mg PO HS PRN PRN Reason: Sleep Or Insomnia Torsemide 20 mg PO QAM Polyethylene Glycol 3350 [Miralax] 17 gm PO QHS PRN #120 powd.pack PRN Reason: Constipation Ropinirole HCl [Requip] 1 mg PO HS Sennosides [Senokot] 1 tab PO DAILY Tiotropium [place] [Spiriva] 18 mcg INH DAILY Albuterol Sulfate Nebs [Proventil, Ventolin] 3 ml NEB Q6 PRN PRN Reason: Shortness Of Breath Mirtazapine 15 mg PO QHS Discharge Home Medication List Metoprolol Succinate 50 mg PO DAILY 06/07/12 [History Confirmed 03/22/16 Last Taken 03/22/16] Aspirin [Aspirin EC] 81 mg PO DAILY 02/06/15 [History Confirmed 03/22/16 Last Taken 03/22/16] Finasteride [Proscar] 5 mg PO DAILY 02/06/15 [History Confirmed 03/22/16 Last Taken 03/22/16] Alprazolam 0.25 mg PO HS PRN 09/23/15 [History Confirmed 03/22/16 Last Taken 06/19] Budesonide/Formoterol Fumarate [Symbicort 80-4.5 Mcg Inhaler] 2 puff INH BID [History Confirmed 03/22/16 Last Taken 03/22/16] Torsemide 20 mg PO QAM 09/23/15 [History Confirmed 03/22/16 Last Taken 03/22/16] Tramadol HCl [Ultram] 100 mg PO TID 09/23/15 [History Confirmed 03/22/16 Last Taken 03/22/16] Polyethylene Glycol 3350 [Miralax] 17 gm PO QHS PRN #120 powd.pack 09/25/15 [Rx Confirmed 03/22/16 Last Taken 10/09/15] Ropinirole HCl [Requip] 1 mg PO HS 10/09/15 [History Confirmed 03/22/16 Last Taken 03/21/16] Sennosides [Senokot] 1 tab PO DAILY 10/09/15 [History Confirmed 03/22/16 Last Taken 03/22/16] Tiotropium [place] [Spiriva] 18 mcg INH DAILY 10/09/15 [History Confirmed Last Taken 03/22/16] Albuterol Sulfate Nebs [Proventil, Ventolin] 3 ml NEB Q6 PRN 03/22/16 [History Confirmed 03/22/16 Last Taken 03/22/16] Mirtazapine 15 mg PO QHS 03/22/16 [History Confirmed 03/22/16 Last Taken ] Guaifenesin [Mucinex] 1,200 mg PO Q12 #60 tablet.er 03/27/16 [Rx Last Taken Unknown] Levofloxacin [Levaquin] 750 mg PO DAILY #10 tablet 03/27/16 [Rx Last Taken Unknown] PEG-Electrolytes (Miralax) [Miralax] 17 gm PO HS #30 pack 03/27/16 [Rx Last Taken Unknown] Prednisone [Sterapred Ds] 10 mg PO DIR #21 pack 03/27/16 [Rx Last Taken Unknown] O2 Device: Nasal Cannula Oxygen Flow Rate: 2 Oxygen to be used after Discharge: Continuous Additional Instructions: TOLERATED Diet at Discharge: Cardiac, Heart Healthy, Low Salt Activity: As Tolerated Call Office For: Worsening Symptoms Discontinue use of:: Alcohol, All Types of Tobacco - DC Summary Notes Hospital Course Note:: Discharge summary on patient named MIKE HIRSCH admitted to [facility] on 03/22/16 by Jonathon Joe MD. Date of discharge is [03/22/16]. Mr. Mike Hirsch is an 85 year old man who presented to the hospital in acute respiratory distress. He had sputum and blood cultures submitted and was started on IV antibiotics with Rocephin and Zithromax. Initially his sputum culture grew out Moraxella, but then both his urine and sputum cultures grew out Pseudomonas which is pansensitive. He was changed to Levaquin and will need 14 days of this antibiotic. He has already received 4 days, plus the initial 5 days of Rocephin for the Moraxella. He is feeling better, and will be discharged to [facility] for short term rehabilitation. He is to follow-up with his primary care physician in 1 week. Code: 22427 (>30min.) - Physical Exam Vital Signs: Last Vital Signs Temp 97.5 F 03/27/16 11:52 Pulse 73 03/27/16 11:52 Resp 18 03/27/16 11:52 BP 141/87 03/27/16 11:52 Pulse Ox 93 03/27/16 11:52 Oxygen Pulse Oxygen Saturation 93 O2 Device Nasal Cannula Oxygen Flow Rate 2 Fraction of Inspired Oxygen ( 2 FIO2) Constitutional: No apparent distress, Alert Oriented to: Time, Person, Place - HEENT Head: Normal Eye: Normal Oropharynx: Normal Tympanic Membrane: Normal ENT EAC: Normal TMJ: Normal Nose: No Symptoms Reported - Respiratory/Cardiovascular Respiratory: Normal - CTA, Diminished Cardiovascular: Normal - GI Auscultation: Normal Palpation: Normal Tenderness: Non tender Alba's Sign: Negative Rectal Exam: Deferred - Musculoskeletal Back: Normal Extremities: Clubbing - Integumentary Skin: Warm, Dry Lymphatics: Normal - Neurologic Memory Impaired: Normal Motor Function: Normal Cranial Nerve: Normal Cerebellar: Ataxia Mood Description: Appropriate, Calm Thought: Coherent Perception: Normal
[2016-03-27 14:10] VITALS: PULSE 84
== END 2016-03-27 15:27 | DRG 177 ==
LOC: ED 16:19 → PCU 20:42
PROVIDERS: ADMIT Internal Medicine; ATTEND Family Medicine
PROC: 039B3ZZ Drainage of Right Radial Artery, Percutaneous Approach (ICD-10-PCS; principal; 2016-03-22)
DX: J15.1 Pneumonia due to Pseudomonas (principal); J96.01 Acute respiratory failure with hypoxia; J44.0 Chronic obstructive pulmonary disease with (acute) lower respiratory infection; J84.10 Pulmonary fibrosis, unspecified; I48.91 Unspecified atrial fibrillation; Z99.81 Dependence on supplemental oxygen; G25.81 Restless legs syndrome; J44.1 Chronic obstructive pulmonary disease with (acute) exacerbation; K21.9 Gastro-esophageal reflux disease without esophagitis; N40.0 Benign prostatic hyperplasia without lower urinary tract symptoms; I25.10 Atherosclerotic heart disease of native coronary artery without angina pectoris; I25.2 Old myocardial infarction; E78.00 Pure hypercholesterolemia, unspecified; Z95.0 Presence of cardiac pacemaker; I51.9 Heart disease, unspecified; M19.90 Unspecified osteoarthritis, unspecified site; Z88.0 Allergy status to penicillin; Z88.8 Allergy status to other drugs, medicaments and biological substances; Z79.899 Other long term (current) drug therapy; Z79.82 Long term (current) use of aspirin; Z87.891 Personal history of nicotine dependence; F32.9 Major depressive disorder, single episode, unspecified; Z66 Do not resuscitate; Z23 Encounter for immunization
CPT/HCPCS: 36415; 36600; 71010; 71020; 71250; 74177; 80048; 80053; 81001; 82550; 82803; 82962; 83036; 83605; 83690; 83735; 83880; 84484; 85007; 85025; 85027; 85610; 85730; 87040; 87070; 87077; 87086; 87181; 87186; 87205; 87641; 93005; 94640; 96365; 96366; 96372; 96375; 97162; 98960; 99285; A9698; G0237; J0456; J0696; J1170; J1650; J1940; J1956; J2930; J3490; J7060; J7070; J7620